=== PATIENT | female | born 1985 | race Asian ===

== ENCOUNTER 2018-01-31 | Emergency (ER) | payer OTHER, SELFPAY ==
--- OUTSIDE RECORDS SUMMARY | 2018-01-31 21:24 | XMS REPORT | Clinical Summary ---
:1985 Author Organization [facility] Address [address] [place] [id number] Care Team Providers Name Role Phone Asked, No Pcp Primary Care Provider Unavailable Allergies Active Allergy Reactions Severity Noted Date Comments Iodine Anaphylaxis High 05/06/2017 Current Medications Prescription Sig. Disp. Refills Start Date End Date Status ondansetron (ZOFRAN) 4 Take 1 tablet 12 tablet 0 05/06/2017 06/05/2017 MG tablet (4 mg total) by mouth every 6 (six) hours for 30 days. Active Problems Not on file Encounters Date Type Specialty Care Team Description 05/06/2017 Emergency Emergency Medicine Alexandria Retana, without MD Shahram loss of consciousness, initial encounter (Primary Dx) 03/12/2017 Hospital Encounter Emergency Medicine Physician, Emergency, Gael Tenorio MD after 01/30/2017 Social History Tobacco Use Types Packs/Day Years Used Date Current Every Day Smoker Tobacco Cessation: Ready to Quit: No; Counseling Given: No Alcohol Use Drinks/Week oz/Week Comments No Sex Assigned at Date Recorded Not on file Last Filed Vital Signs Vital Sign Reading Time Taken Blood Pressure 121/77 05/06/2017 10:00 AM CDT Pulse 87 05/06/2017 10:00 AM CDT Temperature 37 C (98.6 F) 05/06/2017 10:00 AM CDT Respiratory Rate 17 05/06/2017 10:00 AM CDT Oxygen Saturation 100% 05/06/2017 10:00 AM CDT Inhaled Oxygen Concentration - - Weight 79.4 kg (175 lb) 05/06/2017 7:48 AM CDT Height 162.6 cm (5' 4") 05/06/2017 7:48 AM CDT Body Mass Index 30.04 05/06/2017 7:48 AM CDT Plan of Treatment Health Maintenance Due Date Last Done Comments PAP SMEAR 2005 INFLUENZA VACCINE 06/11/2017 Results ECG ED Preliminary Interpretation - NOT AN ORDER (05/06/2017 8:49 AM) Narrative Alexandria Retana MD 05/06/20178:49 AM ECG ED Preliminary Interpretation - Not an Order Performed by: ALEXANDRIA RETANA Authorized by: ALEXANDRIA RETANA ECG reviewed by ED Physician in the absence of a bait maker: no Previous ECG: Previous ECG:Compared to current Interpretation: Interpretation: normal Rate: ECG rate:57 ECG rate assessment: normal Rhythm: Rhythm: sinus rhythm and sinus bradycardia Ectopy: Ectopy: none QRS: QRS axis:Normal Conduction: Conduction: normal ST segments: ST segments:Normal T waves: T waves: normal ECG 12 lead (05/06/2017 8:38 AM) Component Value Ref Range Ventricular rate 57 Atrial rate 57 WV interval 170 QRSD interval 80 QT interval 432 QTC interval 420 P axis 1 57 QRS axis 1 48 T wave axis 40 EKG impression Sinus bradycardia-Otherwise normal ECG-No previous ECGs available- Specimen Performing Laboratory [facility] [address] [place] [address] Estimated GFR (05/06/2017 8:23 AM)Only the most recent of2 resultswithin the time period is included. Component Value Ref Range GFR Non Af Amer 83 mL/min/1.73 m2 GFR Af Amer >90 mL/min/1.73 m2 Comment: Chronic kidney disease: <60 mL/min/1.73m2 Kidney failure: <15 mL/min/1.73m2 The estimated GFR is calculated from the IDMS-traceable Modification of Diet in Renal Disease Equation. The accuracy of the calculation is poor when the creatinine is normal. Calculated values >90 mL/min/1.73m2 are not reported. This equation has not been validated in children (<18 years), women, the elderly (>70 years), or ethnic groups other than Caucasians and Americans. Specimen Performing Laboratory Plasma specimen [facility] DEPARTMENT OF PATHOLOGY AND GENOMIC MEDICINE [address] [place] [address] Troponin (05/06/2017 8:23 AM) Component Value Ref Range Troponin <0.01 0.00 - 0.60 ng/mL Comment: 0.11 - 1.49 ng/mlMay indicate increased risk of acute coronary syndrome. >=1.5 ng/mlConsistent with acute myocardial infarction. The diagnostic value of a single normal or non-diagnostic result is questionable.Serial samples at 2-6 hour intervals are required to rule out acute myocardial injury. Specimen Performing Laboratory Plasma specimen [facility] DEPARTMENT OF PATHOLOGY AND GENOMIC MEDICINE [address] [place] [address] CBC with platelet and differential (05/06/2017 8:23 AM)Only the most recent of2 resultswithin the time period is included. Component Value Ref Range WBC 5.9 4.2 - 11.0 k/uL RBC 4.43 4.04 - 5.86 m/uL HGB 13.5 11.5 - 15.3 g/dL HCT 39.0 34.0 - 45.0 % MCV 88.0 80.0 - 98.0 fL MCH 30.5 27.0 - 34.0 pg MCHC 34.6 31.5 - 36.5 g/dL RDW - SD 39.1 37.0 - 51.0 fL MPV 10.6 (H) 7.4 - 10.4 fL Platelet count 228 150 - 400 k/uL Nucleated RBC 0.00 /100 WBC Neutrophils 60.1 36.0 - 66.0 % Lymphocytes 29.7 24.0 - 44.0 % Monocytes 6.4 (H) 0.0 - 6.0 % Eosinophils 3.2 0.0 - 6.0 % Basophils 0.3 0.0 - 1.2 % Immature granulocytes 0.3 0.0 - 1.0 % Specimen Performing Laboratory Blood [facility] DEPARTMENT OF PATHOLOGY AND GENOMIC MEDICINE [address] [place] [address] hCG qualitative, serum screen (05/06/2017 8:23 AM) Component Value Ref Range hCG qualitative, serum Negative Comment: The manufacturers stated sensitivity of HcG test for serum is >/=10 mIU/ml and urine is >/=20mIU/ml. Specimen Performing Laboratory Blood [facility] DEPARTMENT OF PATHOLOGY AND GENOMIC MEDICINE [address] [place] [address] Comprehensive metabolic panel (05/06/2017 8:23 AM)Only the most recent of2 resultswithin the time period is included. Component Value Ref Range Sodium 140 135 - 150 mEq/L Potassium 3.8 3.5 - 5.0 mEq/L Chloride 106 100 - 109 mEq/L CO2 26 24 - 32 mmol/L Anion gap 8 7 - 15 mEq/L Comment: Starting from February , anion gap calculation no longer incorporates potassium. Please note the change. BUN 8 7 - 18 mg/dL Creatinine 0.8 0.8 - 1.5 mg/dL Glucose 91 65 - 100 mg/dL Calcium 8.9 8.6 - 10.7 mg/dL Protein 7.9 6.3 - 8.2 g/dL Albumin 3.9 3.2 - 5.0 g/dL A/G ratio 1.0 0.7 - 3.8 Alkaline phosphatase 72 30 - 120 U/L AST 18 15 - 37 U/L ALT 22 (L) 30 - 65 U/L Total bilirubin 0.8 0.2 - 1.2 mg/dL Specimen Performing Laboratory Plasma specimen [facility] DEPARTMENT OF PATHOLOGY AND GENOMIC MEDICINE [address] [place] [address]. [place] [address] CT Head Wo Contrast (05/06/2017 8:17 AM) Specimen Performing Laboratory [facility] [address] [place] [address] Narrative Procedure:CT HEAD WO CONTRAST REFERRING PHYSICIAN:ALEXANDRIA RETANA HISTORY:head trauma COMPARISON: None TECHNIQUE: Axial images were obtained of the head without intravenous contrast. All CT scan performed using radiation dose reduction techniques. Technical factors are evaluated and adjusted to ensure appropriate moderation of exposure. Automated dose management technology is applied to adjust the radiation dose to minimize expose whileachieving a diagnostic quality image. FINDINGS: Aquino-white matter differentiation is maintained. The ventricular system is symmetric and midline. Nointra-axial or extra-axial lesion is seen. The visualized portion of the orbits and mastoid air cells are unremarkable. Probable 2.5 cm right maxillary mucous retention cyst is noted. The calvarium is intact. IMPRESSION: Unremarkable CT head exam with no CT evidence of acute intracranial abnormality or hemorrhage. [id number] Procedure Note Interface, Radiology Results Incoming - 05/06/2017 8:24 AM CDT Procedure:CT HEAD WO CONTRAST REFERRING PHYSICIAN:ALEXANDRIA RETANA HISTORY: head trauma COMPARISON: None TECHNIQUE: Axial images were obtained of the head without intravenous contrast. All CT scan performed using radiation dose reduction techniques. Technical factors are evaluated and adjusted to ensure appropriate moderation of exposure. Automated dose management technology is applied to adjust the radiation dose to minimize expose while achieving a diagnostic quality image. FINDINGS: Aquino-white matter differentiation is maintained. The ventricular system is symmetric and midline. No intra-axial or extra-axial lesion is seen. The visualized portion of the orbits and mastoid air cells are unremarkable. Probable 2.5 cm right maxillary mucous retention cyst is noted. The calvarium is intact. IMPRESSION: Unremarkable CT head exam with no CT evidence of acute intracranial abnormality or hemorrhage. [id number] Urine culture screen (03/12/2017 9:03 PM) Component Value Ref Range Color, UA Yellow Appearance, UA Clear Specific gravity, UA 1.011 1.001 - 1.035 pH, UA 6.0 5.0 - 8.5 Protein, UA Negative Negative Glucose, UA Negative Negative Ketones, UA Negative Negative Bilirubin, UA Negative Negative Blood, UA Negative Negative Nitrite, UA Negative Negative Urobilinogen, UA Negative <2.0 Leukocyte esterase, UA Negative Negative Epithelial cells, UA Few /HPF WBC, UA <1 0 - 5 /HPF RBC, UA 3 0 - 5 /HPF Bacteria, UA Trace None seen Yeast, UA None seen Yeast with pseudohyphae, UA None seen Urine culture isolate Mixed Gram positive larry 10-2 cfu/ml This is a corrected report. Previously reported as Gram positive larry. Urine culture isolate Gram negative rods <10-1 cfu/ml Specimen Performing Laboratory Urine [facility] DEPARTMENT OF PATHOLOGY AND GENOMIC MEDICINE [address] [place] [address] Narrative Specimen Site is : Clean catch Specimen Source is : Urine Gram stain (03/12/2017 9:03 PM) Component Value Ref Range Gram stain result Rare WBC's Few Gram positive rods Specimen Performing Laboratory Urine [facility] DEPARTMENT OF PATHOLOGY AND GENOMIC MEDICINE [address] [place] [address] Narrative Specimen Site is : Clean catch Specimen Source is : Urine XR Chest 2 Vw (03/12/2017 7:37 PM) [facility]imen [facility] [address] [place] [address] Narrative EXAMINATION:CHEST 2 VIEW PA AP LATERAL CLINICAL HISTORY:Fever/Sepsis COMPARISON:None IMPRESSION: 1.Heart size is within normal limits. Vessels are not congested. 2.No infiltrates are seen. 3.There are no pleural effusions. 4.There is some thoracolumbar scoliosis. [facility]-[id number] Procedure Note Hm Interface, Radiology Conversion - 03/12/2017 7:43 PM CDT EXAMINATION: CHEST 2 VIEW PA AP LATERAL CLINICAL HISTORY: Fever/Sepsis COMPARISON: None IMPRESSION: 1.Heart size is within normal limits. Vessels are not congested. 2.No infiltrates are seen. 3.There are no pleural effusions. 4.There is some thoracolumbar scoliosis. [facility]-[id number] Lactic acid level (03/12/2017 7:21 PM) Component Value Ref Range Lactic acid 1.4 0.5 - 2.2 mmol/L Specimen Performing Laboratory [facility] DEPARTMENT OF PATHOLOGY AND GENOMIC MEDICINE [address] [place] [address] Group A strep, rapid antigen (03/12/2017 7:07 PM) Component Value Ref Range Group A strep, rapid antigen result Negative for Group A Streptococcus antigen. Specimen Performing Laboratory Throat [facility] DEPARTMENT OF PATHOLOGY AND GENOMIC MEDICINE [address] [place] [address] Narrative Specimen Site is : Not otherwise specified Specimen Source is : Throat Strep screen culture (03/12/2017 6:03 PM) Component Value Ref Range Strep screen culture isolate No beta hemolytic Streptococci isolated Specimen Performing Laboratory Throat [facility] DEPARTMENT OF PATHOLOGY AND GENOMIC MEDICINE [address] [place] [address] Narrative Specimen Site is : Not otherwise specified Specimen Source is : Throat after 01/30/2017 Insurance Payer Benefit Plan / Group Subscriber ID Type Phone Address [facility] CHOICE/CHOICE + xxxxxxxxx HMO/PPO [phone] [place] [address]
--- NOTE | 2018-01-31 22:37 | EDPHYS ---
Physician Documentation [facility] Name: Apryl Chung Age: 32 yrs Sex: Female : 1985 Arrival Date: 01/31/2018 Time: 21:26 Bed 26 Private MD: ED Physician Ismael Wong HPI: 02/01 15:27 This 32 yrs old Female presents to ER via Ambulatory with complaints of Eye wa Problem. 15:27 The patient is experiencing itching, to both eyes. Onset: The symptoms/episode wa began/occurred 3 day(s) ago. Duration: the symptoms are continuous. Aggravated by nothing. Alleviated by nothing. Associated signs and symptoms: Pertinent positives: mild congestion, Pertinent negatives: dizziness, ear ache, fever, headache. Patient does not utilize any form of vision correction. Severity of symptoms: At their worst the symptoms were mild in the emergency department the symptoms are unchanged. The patient has not experienced similar symptoms in the past. The patient has not recently seen a physician. 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 - Social history:: Smoking status: Patient uses tobacco products, denies chronic smoking, but will smoke occasionally. - Family history:: not pertinent. - Hospitalizations: : No recent hospitalization is reported. ROS: 02/01 15:30 Constitutional: Negative for fever, chills, and weight loss, ENT: Negative for injury, wa pain, and discharge, Neck: Negative for injury, pain, and swelling, Cardiovascular: Negative for chest pain, palpitations, and edema, Respiratory: Negative for shortness of breath, cough, wheezing, and pleuritic chest pain, Abdomen/GI: Negative for abdominal pain, nausea, vomiting, diarrhea, and constipation, Back: Negative for injury and pain, : Negative for injury, bleeding, discharge, and swelling, MS/Extremity: Negative for injury and deformity, Skin: Negative for injury, rash, and discoloration, Neuro: Negative for headache, weakness, numbness, tingling, and seizure, Psych: Negative for depression, anxiety, suicide ideation, homicidal ideation, and hallucinations. Eyes: Positive for itching, Negative for blurry vision, discharge, foreign body sensation, pain, photophobia, redness, swelling, tearing, vision loss. All other systems are negative. Exam: 15:30 Visual Acuity: Visual acuity is within normal limits. ok 15:30 Head/Face: Normocephalic, atraumatic. ENT: Nares patent. No nasal discharge, no septal abnormalities noted. Tympanic membranes are normal and external auditory canals are clear. Oropharynx with no redness, swelling, or masses, exudates, or evidence of obstruction, uvula midline. Mucous membranes moist. Neck: Trachea midline, no thyromegaly or masses palpated, and no cervical lymphadenopathy. Supple, full range of motion without nuchal rigidity, or vertebral point tenderness. No Meningismus. Cardiovascular: Regular rate and rhythm with a normal S1 and S2. No gallops, murmurs, or rubs. Normal PMI, no JVD. No pulse deficits. Respiratory: Lungs have equal breath sounds bilaterally, clear to auscultation and percussion. No rales, rhonchi or wheezes noted. No increased work of breathing, no retractions or nasal flaring. Abdomen/GI: Soft, non-tender, with normal bowel sounds. No distension or tympany. No guarding or rebound. No evidence of tenderness throughout. Back: No spinal tenderness. No costovertebral tenderness. Full range of motion. Skin: Warm, dry with normal turgor. Normal color with no rashes, no lesions, and no evidence of cellulitis. MS/ Extremity: Pulses equal, no cyanosis. Neurovascular intact. Full, normal range of motion. Neuro: Awake and alert, GCS 15, oriented to person, place, time, and situation. Cranial nerves II-XII grossly intact. Motor strength 5/5 in all extremities. Sensory grossly intact. Cerebellar exam normal. Normal gait. Psych: Awake, alert, with orientation to person, place and time. Behavior, mood, and affect are within normal limits. 15:30 Eyes: Periorbital structures: appear normal, Pupils: no acute changes, equal, round, and reactive to light and accomodation, Extraocular movements: no acute changes, Conjunctiva: normal, no exudate, no injection, no abnormal tearing, Corneas: are normal, Sclera: no appreciated abnormality, Anterior chamber: normal, Lids and lashes: appear normal. Vital Signs: 01/31 21:36 BP 143 / 103 RA Sitting; Pulse 68; Resp 16; Temp 98.0(TE); Pulse Ox 100% on R/A; Weight lp1 77.11 kg; Height 5 ft. 4 in. (162.56 cm); Pain 5/10; 21:36 BP 155 / 109 LA Sitting; lp1 22:30 BP 144 / 95; Pulse 72; Resp 15; Pulse Ox 100% on R/A; lk1 21:36 Body Mass Index 29.18 (77.11 kg, 162.56 cm) lp1 MDM: 22:04 Patient medically screened. ok 02/01 15:31 Differential diagnosis: nml exam. consider reaction to pollen? will suggest trial of wa zyrtec and pataday. f/u with ophtho prn. Data reviewed: vital signs, nurses notes. Administered Medications: No medications were administered Disposition: 01/31/18 22:37 Discharged to Home. Impression: Itchy eyes, Acute eye irritation. - Condition is Stable. - Prescriptions for Zyrtec 10 mg Oral Tablet - take 1 tablet by ORAL route once daily As needed; 20 tablet. Pataday 0.2 % Ophthalmic drops - instill 1 drop by OPHTHALMIC route every 12 hours; 1 box. - Medication Reconciliation Form, Thank You Letter, Antibiotic Education, Prescription Opioid Use form. - Follow up: Socorro Lauren MD; When: 1 - 2 days; Reason: Recheck today's complaints. - Problem is new. - Symptoms are unchanged. - Notes: use medicines as prescribed. follow up with the eye doctor as discussed Signatures: Juanita Romano, RN RN lp1 Sandra Dhillon RN RN lk1 Ismael Wong MD MD wa
--- NOTE | 2018-01-31 22:37 | ER ---
Nurse's Notes [facility] Name: Apryl Chung Age: 32 yrs Sex: Female : 1985 Arrival Date: 01/31/2018 Time: 21:26 Bed 26 Private MD: Diagnosis: Itchy eyes;Acute eye irritation Presentation: 01/31 21:32 Presenting complaint: Patient states: Feeling eyes are irritated since yesterday, lp1 States small time frame with blurry vision to left eye that has resolved now; States switching to Pescatarian diet and has eaten a lot of seafood, concerned of allergic reaction; States eyes feeling strained, "like my eyes are being pulled". Transition of care: patient was not received from another setting of care. Onset of symptoms was January 31, 2018. Care prior to arrival: None. 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 - Social history:: Smoking status: Patient uses tobacco products, denies chronic smoking, but will smoke occasionally. - Family history:: not pertinent. - Hospitalizations: : No recent hospitalization is reported. Screenin:36 Abuse screen: Denies threats or abuse. Denies injuries from another. Nutritional lp1 screening: No deficits noted. Tuberculosis screening: No symptoms or risk factors identified. Fall Risk None identified. Assessment: 22:15 General: Appears in no apparent distress. Behavior is appropriate for age, agitated. lk1 Pain: Complains of pain in right eye and left eye. Neuro: Level of Consciousness is awake, alert, obeys commands, Oriented to person, place, time, situation, Pupils are PERRLA. Cardiovascular: Capillary refill is brisk Patient's skin is warm and dry. Respiratory: Airway is patent Respiratory effort is even, unlabored, Respiratory pattern is regular, symmetrical. EENT: Eyes clear . Sclera/Cornea. Vital Signs: 21:36 BP 143 / 103 RA Sitting; Pulse 68; Resp 16; Temp 98.0(TE); Pulse Ox 100% on R/A; Weight lp1 77.11 kg; Height 5 ft. 4 in. (162.56 cm); Pain 5/10; 21:36 BP 155 / 109 LA Sitting; lp1 22:30 BP 144 / 95; Pulse 72; Resp 15; Pulse Ox 100% on R/A; lk1 21:36 Body Mass Index 29.18 (77.11 kg, 162.56 cm) 1 ED Course: 21:26 Patient arrived in ED. al2 21:34 Triage completed. lp1 21:34 Arm band placed on left wrist. lp1 22:04 Ismael Wong MD is Attending Physician. al 22:19 Sandra Dhillon RN is Primary Nurse. lk1 22:36 Socorro Lauren MD is Referral Physician. al 22:53 Patient has correct armband on for positive identification. Bed in low position. Call lk1 light in reach. Adult w/ patient. 22:53 No provider procedures requiring assistance completed. Patient did not have IV access lk1 during this emergency room visit. Administered Medications: No medications were administered Outcome: 22:37 Discharge ordered by . al 22:53 Discharged to home ambulatory. lk1 22:53 Condition: good 22:53 Discharge instructions given to patient, significant other, Instructed on discharge instructions, follow up and referral plans. medication usage, safety practices, Demonstrated understanding of instructions, follow-up care, medications, Prescriptions given X 2. 22:54 Patient left the ED. lk1 Signatures: Juanita Romano RN RN 1 Sandra Dhillon, [facility] Ismael Wong MD MD wa Love, Angelica al
== END 2018-01-31 22:54 | disposition home or self-care (01) ==
CPT/HCPCS: 99282

== ENCOUNTER 2019-10-07 19:35 | Emergency (ER) | payer OTHER, SELFPAY ==
--- OUTSIDE RECORDS SUMMARY | 2019-10-07 19:37 | XMS REPORT ---
:1985 [facility] Address [address] [place] [address] Care Team Providers Name Role Phone Unavailable Unavailable Unavailable Payers Payer Name Policy Type Policy Number Effective Date Expiration Date Problems This patient has no known problems. Allergies, Adverse Reactions, Alerts Allergy Allergy Status Severity Reaction(s) Onset Inactive Treating Comments Name Type Date Date Clinician Iodinated DA Active MO 2019-03 Contrast- -11 Oral and IV 00:00:0 Dye 0 Iodinated DA Active MO 2019-03 Contrast- -10 Oral and IV 00:00:0 Dye 0 pineapple DA Active MO 2019-03 00:00:0 0 Iodinated DA Active MO 2019-03 Contrast- -09 Oral and IV 00:00:0 Dye 0 Iodinated DA Active MO 2017-04 Contrast- -05 Oral and IV 00:00:0 Dye 0 pineapple DA Active MO 2017-04 00:00:0 0 Medications This patient has no known medications. Results Test Description Test Time Test Comments Text Results Atomic Results Result Comments - CT ANGIO HEAD 2019-03-21 09:40:00 Name: KERRY LU [facility] : 1985 Age/S: 33 / F [address] Unit #: [id number] Loc: [place] [address] Phys: Delano Vargas MD Acct: [id number] Dis Date: Status: ADM IN PHONE #: [phone] Exam Date: 03/21/2019919 FAX #: Reason: stroke EXAMS: CPT: [id number] CT ANGIO HEAD [address] Location: T 18 CTA of the brain 03/21/19 TECHNIQUE: CTA examination of the zhwuxy-ko-Cqjsdl was performed on a helical scanner with patient given 100 mL of Isovue 300. Vascular protocol performed. Ultrathin slice axial images acquired from skull base through vertex of brain utilizing contiguous 0.6mm slice thickness with coronal and sagittal reformatted images acquired on the PAC workstation. Post contrast only images acquired. 3D reformatted images also acquired of the intracranial vessels using VITREA software by the interpreting radiologist . The examination was performed on an updated helical CT scanner utilizing low-dose radiation technique. Automatic exposure technique was utilized to reduce radiation dose. CLINICAL HISTORY: Ischemic stroke Comparison exam: MRI imaging of the brain of 03/19/19 and CTA assessment of the neck 03/21/19 FINDINGS: Do not see any findings suggestive of an aneurysm or vascular malformation. No discrete area of stenosis or pruning of the vessels is seen. No large branch occlusion is seen. No findings suggestive of vertebro basilar insufficiency is seen. No space occupying process is seen. No midline shift or abnormal enhancement is seen. No intracranial hemorrhage is seen with assessment for subarachnoid hemorrhage limited since post contrast images only acquired. IMPRESSION: Normal CTA examination xskayp-pr-Fxlwmt at 0940 Reported and signed by: Maryse Mclaughlin M.D. PAGE 1 Signed Report (CONTINUED) Name: KERRY LU [facility] : 1985 Age/S: 33 / F [address] Unit #: [id number] Loc: [place] [address] Phys: Delano Vargas MD Acct: [id number] Dis Date: Status: ADM IN PHONE #: [phone] Exam Date: 03/21/2019919 FAX #: Reason: stroke EXAMS: CPT: [id number] CT ANGIO HEAD [address] <Continued> CC: Delano Vargas MD; Bhavin Rivera MD Technologist:RT Elieser(R)(MR); Emmetti CTDI: DLP: Trnscb Date/Time: 03/21/2019 (939) [email or web address] Orig Print D/T: S: 03/21/2019 (0943) PAGE 2 Signed Report - CT ANGIO NECK 2019-03-21 09:37:00 Name: KERRY LU [place] : 1985 Age/S: 33 / F [address] Unit #: [id number] Loc: [place] [address] Phys: Delano Vargas MD Acct: [id number] Dis Date: Status: ADM IN PHONE #: [phone] Exam Date: 03/21/2019919 FAX #: Reason: stroke EXAMS: CPT: [id number] CT ANGIO NECK [address] Location: T 18 CTA neck, 03/21/19 TECHNIQUE: CTA examination of the neck with contrast using vascular protocol performed on a helical scanner. Scanning conducted using ultrathin contiguous 0.6mm axial slice technique from aortic arch through skull base. Patient given 100 mL of Isovue 360 for contrast. High resolution sagittal and coronal reformatted images acquired on the PAC workstation. 3D volume rendering images also acquired by interpreting radiologist using VITREA software provided on the PAC system . The examination was conducted on an updated helical CT scanner utilizing low-dose radiation technique. Automatic exposure technique was utilized to reduce radiation dose CLINICAL HISTORY: Stroke assessment, ischemic stroke Comparison exam: MRI imaging of the brain of 03/19/19 and MRA assessment of the neck of 03/19/19 and to the carotid Doppler findings of 03/19/19 FINDINGS: No findings of concern for vasculitis. No findings of concern for vascular dissection. No measurable carotid stenosis. No significant carotid stenosis. MRI findings discussing possible stenosis at the origin of the right ICA felt to be artifactual. Likewise there is normal enhancement seen in the vertebral arteries. Normal branching pattern of the vessels arising from the aortic arch. No significant stenosis of the prebulbar portion of either carotid artery is seen. The brachiocephalic artery and subclavian arteries exhibit normal enhancement. No significant atherosclerotic plaque formation is seen. IMPRESSION: Unremarkable CTA examination of the neck without measurable carotid stenosis. No findings of concern for dissection PAGE 1 Signed Report (CONTINUED) [facility] [place] [facility] 1985 Age/S: 33 / F [address] Unit #: [id number] Loc: [place] [address] Phys: Delano Vargas MD Acct: [id number] Dis Date: Status: ADM IN PHONE #: [phone] Exam Date: 03/21/2019919 FAX #: Reason: stroke EXAMS: CPT: [id number] CT ANGIO NECK [address]9768 <Continued> at 0937 Reported and signed by: Maryse Mclaughlin M.D. CC: Delano Vargas MD; Bhavin Rivera MD Technologist:RT Elieser(R)(MR); Micah CTDI: DLP: Trnscb Date/Time: 03/21/2019 (936) [email or web address] Orig Print D/T: S: 03/21/2019 (78) PAGE 2 Signed Report BASIC METABOLIC PANEL 2019-03-21 08:14:00 Test Item Value Reference Range Comments SODIUM (test code=NA) 140 mmol/L 134-147 POTASSIUM (test code=K) 4.2 mmol/L 3.4-5.0 CHLORIDE (test code=CL) 108 mmol/L 100-108 CARBON DIOXIDE (test code=CO2) 27 mmol/L 21-32 ANION GAP (test code=GAP) 5.0 GAP calc 4.0-15.0 GLUCOSE (test code=GLU) 121 MG/DL 70-110 BLOOD UREA NITROGEN (test code=BUN) 8 MG/DL 7-18 GLOMERULAR FILTRATION RATE (test code=GFR) >=60 max estimate estGFR >60 CREATININE (test code=CREAT) 0.8 MG/DL 0.6-1.0 CALCIUM (test code=CA) 8.8 MG/DL 8.5-10.1 GLUCOSE BEDSIDE [id number] 08:12:00 Test Item Value Reference Range Comments GLUCOSE BEDSIDE TESTING (test code=GLUBED) 121 mg/dL 70-110 CBC W/AUTO [id number] 08:11:00 Test Item Value Reference Range Comments WHITE BLOOD CELL (test code=WBC) 15.6 K/mm3 3.5-11.0 RED BLOOD CELL (test code=RBC) 4.23 M/mm3 4.70-6.10 HEMOGLOBIN (test code=HGB) 12.8 G/DL 10.4-14.9 HEMATOCRIT (test code=HCT) 39.0 % 31.5-44.1 MEAN CELL VOLUME (test code=MCV) 92.2 Fl 84.5-98.6 MEAN CELL HGB (test code=MCH) 30.3 pg 27.0-34.2 MEAN CELL HGB CONCETRATION (test code=MCHC) 32.8 G/DL 31.5-34.0 RED CELL DISTRIBUTION WIDTH (test code=RDW) 11.9 SD 11.5-14.5 PLATELET COUNT (test code=PLT) 240.0 K/mm3 150-450 MEAN PLATELET VOLUME (test code=MPV) 11.00 fL 7.0-10.5 NEUTROPHIL % (test code=NT%) 91.3 % 40-76 LYMPHOCYTE % (test code=LY%) 7.2 % 20.5-51.1 MONOCYTE % (test code=MO%) 1.5 % 1.7-9.3 EOSINOPHIL % (test code=EO%) 0.0 % 0.0-6.0 BASOPHIL % (test code=BA%) 0.0 % 0.0-2.0 NEUTROPHIL # (test code=NT#) 14.24 K/mm3 1.8-7.6 LYMPHOCYTE # (test code=LY#) 1.1 K/mm3 0.6-3.2 MONOCYTE # (test code=MO#) 0.2 K/mm3 0.3-1.1 EOSINOPHIL # (test code=EO#) 0.0 K/mm3 0.0-0.4 BASOPHIL # (test code=BA#) 0.0 K/mm3 0.0-0.1 MANUAL DIFF REQUIRED (test code=MDIFF) NO DIFF/SCN CRITERIA GLUCOSE BEDSIDE [id number] 00:54:00 Test Item Value Reference Range Comments GLUCOSE BEDSIDE TESTING (test code=GLUBED) 119 mg/dL 70-110 SED [id number] 12:08:00 Test Item Value Reference Range Comments SED RATE (test code=SEDW) 11 mm/hr 0-20 BASIC METABOLIC [id number] 11:19:00 Test Item Value Reference Range Comments SODIUM (test code=NA) 141 mmol/L 134-147 POTASSIUM (test code=K) 4.6 mmol/L 3.4-5.0 CHLORIDE (test code=CL) 108 mmol/L 100-108 CARBON DIOXIDE (test code=CO2) 26 mmol/L 21-32 ANION GAP (test code=GAP) 7.0 GAP calc 4.0-15.0 GLUCOSE (test code=GLU) 94 MG/DL 70-110 BLOOD UREA NITROGEN (test code=BUN) 12 MG/DL 7-18 GLOMERULAR FILTRATION RATE (test >=60 max estimate estGFR >60 code=GFR) CREATININE (test code=CREAT) 0.9 MG/DL 0.6-1.0 CALCIUM (test code=CA) 8.7 MG/DL 8.5-10.1 CBC W/AUTO [id number] 11:03:00 Test Item Value Reference Range Comments WHITE BLOOD CELL (test code=WBC) 6.8 K/mm3 3.5-11.0 RED BLOOD CELL (test code=RBC) 4.10 M/mm3 4.70-6.10 HEMOGLOBIN (test code=HGB) 12.5 G/DL 10.4-14.9 HEMATOCRIT (test code=HCT) 38.3 % 31.5-44.1 MEAN CELL VOLUME (test code=MCV) 93.4 Fl 84.5-98.6 MEAN CELL HGB (test code=MCH) 30.5 pg 27.0-34.2 MEAN CELL HGB CONCETRATION (test code=MCHC) 32.6 G/DL 31.5-34.0 RED CELL DISTRIBUTION WIDTH (test code=RDW) 12.0 SD 11.5-14.5 PLATELET COUNT (test code=PLT) 212.0 K/mm3 150-450 MEAN PLATELET VOLUME (test code=MPV) 10.60 fL 7.0-10.5 NEUTROPHIL % (test code=NT%) 65.5 % 40-76 LYMPHOCYTE % (test code=LY%) 24.4 % 20.5-51.1 MONOCYTE % (test code=MO%) 6.2 % 1.7-9.3 EOSINOPHIL % (test code=EO%) 3.8 % 0.0-6.0 BASOPHIL % (test code=BA%) 0.1 % 0.0-2.0 NEUTROPHIL # (test code=NT#) 4.43 K/mm3 1.8-7.6 LYMPHOCYTE # (test code=LY#) 1.7 K/mm3 0.6-3.2 MONOCYTE # (test code=MO#) 0.4 K/mm3 0.3-1.1 EOSINOPHIL # (test code=EO#) 0.3 K/mm3 0.0-0.4 BASOPHIL # (test code=BA#) 0.0 K/mm3 0.0-0.1 MANUAL DIFF REQUIRED (test code=MDIFF) NO DIFF/SCN CRITERIA GLUCOSE BEDSIDE [id number] 20:04:00 Test Item Value Reference Range Comments GLUCOSE BEDSIDE TESTING (test code=GLUBED) 98 mg/dL 70-110 GLUCOSE BEDSIDE [id number] 16:16:00 Test Item Value Reference Range Comments GLUCOSE BEDSIDE TESTING (test code=GLUBED) 92 mg/dL 70-110 - MRA NECK W/O [id number] 13:33:00 FAX: Bhavin Rivera MD Camps: PM St: ADM FAX: Radha Mann MD ----- Name: KERRY LU [facility] : 1985 Age/S: 33/F [address] Unit #: [id number] Loc: [address] [place] [address] Phys: Radha Mann MD Acct: [id number] Dis Date: Status: ADM IN PHONE #: [phone] Exam Date: 03/19/2019 1226 FAX #: Reason: neck manipulation EXAMS: CPT: [id number] MRA NECK W/O CONT 88001 Location code: B2 MRA Carotid Bifurcations Indication: neck manipulation. Comparison: None Technical factors: 3 dimensional MR angiography images of the carotid bifurcations were obtained utilizing standard techniques. Findings: Moderate stenosis is suggested at the origin of the right external carotid artery and right internal carotid artery. The common carotid artery is patent, as are the distal internal and external carotid arteries. Mild stenosis is suggested at the origins of the left internal and external carotid arteries. The common carotid artery is patent, as are the distal internal and external carotid arteries. The vertebral arteries are patent andcodominant. Impression: Possible moderate stenosis at the origin of the right internal and external carotid arteries and mild stenosis at the origin of the left internal and external carotid arteries versus flow related artifact. Consider carotid sonogram to confirm the degree of stenosis. at 5343 Reported and signed by: Clemente Nicole M.D. PAGE 1 Signed Report ( CONTINUED) FAX: Bhavin Rivera MD [phone] Camps: PM St: ADM FAX: Radha Mann MD Name: TATYANA LU [place] : 1985 Age/S: 33/F [address] [facility] Unit #: [id number] Loc: [address] [place] [address] Phys: Yoli Mann Acct: [id number] Dis Date: Status: ADM IN PHONE #: [phone] Exam Date: 03/19/2019 1226 FAX #: Reason: neck manipulation EXAMS: CPT: [id number] MRA NECK W/O CONT 90428 <Continued>CC: Bhavin Rivera MD; Radha Mann MD Technologist: Ayleen Barrios RT(R)(MR); ... Transcribed Date/Time/By: 03/19/2019 (3651) :[email or web address] Orig Print D/T: S: 2018 (6636) PAGE 2 Signed Report - MRI C-SPINE W/O [id number] 13:26:00 FAX: Bhavin Rivera MD [phone] Camps: PM St: ADM FAX: Radha Mann MD -- Name: KERRY LU [facility] : 1985 Age/S: 33/F [address] Unit #: [id number] Loc: [address] [place] [address] Phys: Radha Mann MD Acct: [id number] Dis Date: Status: ADM IN PHONE #: [phone] Exam Date: 03/19/2019 1252 FAX #: Reason: neck manipulation EXAMS: CPT: [id number] MRI C-SPINE W/O CONT 05911 Location code:B2 MRI Cervical Spine Indication: Trauma. Comparison: Neck manipulation. Technical factors: Long and short axis fat- and water-weighted sequences were obtained. Findings: Straightening of the cervical lordosis. Vertebral bodies are of normal height and signal intensity. Mild signal loss of the intervertebral discs without substantive loss of height. The craniocervical junction, atlantodental interval, visualized posterior fossa and position of the cerebellar tonsils appearnormal. Pre-and paraspinal soft tissues are normal in appearance. Mucosal thickening in the paranasal sinuses. The spinal cord is of normal caliber and signal. C2 -- 3: unremarkable. C3 -- 4: Disc bulge of 1 to 1.5 mm. C4 -- 5: Disc bulge of 1 to 1.5 mm. C5- - 6: Disc bulge of 1 to 1.5 mm.C6 -- 7: unremarkable. C7 -- T1: unremarkable. Impression: 1. Straightening of the cervical lordosis may be related to muscular spasm. Correlate clinically. PAGE 1 Signed Report (CONTINUED) FAX: hBavin Rivera MD [phone] Camps: PM St: ADM FAX: Radha Mann MD Name: KERRY LU [place] : 1984 Age/S: 33/F [address] [address] Unit #: [id number] Loc: [place], [place] Phys: Radha Mann MD Acct:[id number] Dis Date: Status: ADM IN PHONE #: [phone] Exam Date: 03/19/2019 1252 FAX #: Reason: neckmanipulation EXAMS : CPT: [id number] MRI C- SPINE W/O CONT 09308 <Continued> 2. Mild disc bulges 1 to 1.5 mm at C3-4, C4-5 and C5-6. 3. Chronic sinusitis is incidentally noted. A 2 cm retention cyst is present in the left maxillary antrum. Electronically Signed by Hamilton Nicole on 2018 at 7733 Reported and signed by: Clemente Hammond M.D. CC: Bhvain Rivera MD; Radha Mann MD Technologist: RT Wilma(R)(MR); ... Transcribed Date/Time/By: 03/19/2019 (1606) :[email or web address] Orig Print D/T: S: 03/19/2019 (2552) PAGE 2 Signed Report- MRI BRAIN W/O [id number] 13:23:00 FAX: Bhavin Rivera MD [phone] Camps: PM St: ADM FAX: Ronda Veloz [phone] -- Name: KERRY LU [place] : 1985 Age/S: 33/F [address] Unit #: [id number] Loc: [place] [address] Phys: Bhavin Rivera MD Acct: [id number] Dis Date: Status: ADM IN PHONE #: [phone] Exam Date: 03/19/2019 1204 FAX #: Reason: ISCHEMIC STROKE EXAMS: CPT: [id number] MRI BRAIN W/O CONTRAST 74648 Location code:B2 MRI Brain Indication: ISCHEMIC STROKE. Comparison: None Technique: Long and short axis fat and water weighted sequences were obtained Findings: Cerebral and cortical sulci and ventricular system are normal in caliber for patient age. No evidence of intracranial mass, mass effect, or focal extra-axial fluid collection. No evidence of infarct Brain signal intensitywithin normal limits. Cerebellum and brainstem unremarkable. Otomastoid region is clear. 2 cm retention cyst in the left maxillary antrum. Craniocervical junction within normal limits. Orbits are grossly unremarkable. Vertebrobasilar and internal carotid arteries are patent. Impression: 1. Unremarkable MRI brain. PAGE 1 Signed Report (CONTINUED) FAX: Bhavin Rivera MD [phone] Camps: PM St: ADM FAX: Ronda Veloz [phone] --- Name: KERRY LU [place] : [birth year] Age/S: 33/F [address] Unit #: [id number] Loc: [place] [address] Phys: Bhavin Rivera MD Acct: [id number] Dis Date: Status: ADM IN PHONE #: [phone] Exam Date : 03/19/2019 1204 FAX #: Reason: ISCHEMIC STROKE EXAMS: CPT: [id number] MRI BRAIN W/O CONTRAST 18280 & lt;Continued> at 1323 Reported and signed by: Clemente Nicole M.D. CC: Bhavin Rivera MD; Ronda POZO Technologist: RT Wilma(R)(MR) Transcribed Date/Time/By: 03/19/2019 (0993) :Aroldo Orig Print D/T : S: 03/19/2019 (6686) PAGE 2 Signed ReportGLUCOSE BEDSIDE [id number] 13:17:00 Test Item Value Reference Range Comments GLUCOSE BEDSIDE TESTING (test code=GLUBED) 80 mg/dL 70-110 - DUP EXTRACRANIAL [id number] 10:02:00 Name: KERRY LU [place] : 1985 Age/S: 33 / F [address] Unit #: [id number] Loc: [place] [address] Phys: Bhavin Rivera MD Acct: [id number] Dis Date: Status : ADM IN PHONE #: [phone] Exam Date: 03/19/2019 0840 FAX #: Reason: ISCHEMIC STROKE EXAMS: CPT: [id number] DUP EXTRACRANIAL MICHAEL [address] Carotid Doppler ultrasound History : ISCHEMIC STROKE Comparison: None at this time Location : R16 Carotid Doppler ultrasound with color flow was performed of the common carotid and internal carotid and external carotid arteries. Measurementof the distal internal carotid artery diameter is used as the denominator for stenosis measurement, if direct measurements were obtained. The internal carotid peak systolic velocity on the right is 105 cm/s. The internal carotid peak systolic velocity on the left is 90 cm/s. The internal carotid to common carotid artery peak systolic velocity ratio on the right is1.4. The internal carotid to common carotid artery peak systolic velocity ratio on the left is 0.8. There is antegrade flow in both vertebral arteries. Impression: According to the internal carotid artery peak systolic velocities andthe internal carotid to common carotid artery peak systolic velocity ratios, there is no hemodynamically significant stenosis. at 1002 Reported and signed by: Tereso Vivar M.D. PAGE 1 Signed Report (CONTINUED) Name: KERRY LU [place] : 1985 Age/S: 33 / F [address] [address] Unit #: [id number] Loc: [place] [address] Phys: Bhavin Rivera MD Acct: [id number] Dis Date: Status: ADM IN PHONE #: [phone] Exam Date: 03/19/2019 0840 FAX #: Reason: ISCHEMIC STROKE EXAMS: CPT: [id number] DUP EXTRACRANIAL MICHAEL [address]702 <Continued> CC: Bhavin Rivera MD; Ronda POZO Technologist: Xuan Bettencourt RT(R),GRADYMS(AB) Trnnmb Date/Time: 03/19/2019 (1002) [email or web address] PAGE 2 Signed Report Name: KERRY LU [place] : 1985 Age/S: 33 / F [address] [address] Unit #: [id number] Loc: [place] [address] Phys: Bhavin Rivera MD Acct: [id number] Dis Date: Status: ADM IN PHONE #: [phone] Exam Date: 03/19/2019 0840 FAX #: Reason: ISCHEMIC STROKE EXAMS:CPT: [id number] DUP EXTRACRANIAL MICHAEL [address] <Continued> Orig Print D/T: S: 03/19/2019 (1005) Probe: PAGE 3 Signed ReportGLUCOSE BEDSIDE [id number] 07:39:00 Test Item Value Reference Range Comments GLUCOSE BEDSIDE TESTING (test code=GLUBED) 100 mg/dL 70-110 [id number] 06:55:00 Test Item Value Reference Range Comments GLYCOSYLATED HEMOGLOBIN (HA1C) (test 5.1 % A1C 4.2-6.3 code=GLYHGB) ESTIMATED AVERAGE GLUCOSE (test code=EAG) 100 MG/DLest COMPREHENSIVE METABOLIC [id number] 06:43:00 Test Item Value Reference Range Comments SODIUM (test code=NA) 142 mmol/L 134-147 POTASSIUM (test code=K) 3.4 mmol/L 3.4-5.0 CHLORIDE (test code=CL) 109 mmol/L 100-108 CARBON DIOXIDE (test code=CO2) 24 mmol/L 21-32 ANION GAP (test code=GAP) 9.0 GAP calc 4.0-15.0 GLUCOSE (test code=GLU) 97 MG/DL 70-110 BLOOD UREA NITROGEN (test code=BUN) 12 MG/DL 7-18 GLOMERULAR FILTRATION RATE (test >=60 max estimate estGFR >60 code=GFR) CREATININE (test code=CREAT) 0.8 MG/DL 0.6-1.0 TOTAL PROTEIN (test code=PROT) 6.9 G/DL 6.4-8.2 ALBUMIN (test code=ALB) 3.4 G/DL 3.4-5.0 GLOBULIN (test code=GLOB) 3.5 GM/dL ALBUMIN/GLOBULIN RATIO (test 1.0 RATIO 1.2-2.2 code=A/G) CALCIUM (test code=CA) 8.0 MG/DL 8.5-10.1 BILIRUBIN TOTAL (test code=BILT) 0.70 MG/DL 0.2-1.2 SGOT/AST (test code=AST) 15 Unit/L 15-37 SGPT/ALT (test code=ALT) 14 Unit/L 12-78 ALKALINE PHOSPHATASE TOTAL (test 62 Unit/L 45-117 code=ALKP) T4 [id number] 06:43:00 Test Item Value Reference Range Comments T4 FREE (test code=T4F) 0.95 NG/DL 0.89-1.76 THYROID STIMULATING [id number] 06:43:00 Test Item Value Reference Range Comments THYROID STIMULATING HORMONE (test code=TSH) 15.100 mcIU/ML 0.340-4.820 LIPID PROFILE (CORONARY RISK)2019-03-19 06:40:00 Test Item Value Reference Range Comments TRIGLYCERIDES (test code=TRIG) 156 MG/DL 0-150 CHOLESTEROL (test code=CHOL) 158 MG/DL 133-200 CHOLESTEROL/HDL RATIO (test code=CHOLHDL) 3.76 RATIO >0 HDL CHOLESTEROL (test code=HDL) 42 MG/DL 40-59 NON-HDL CHOLESTEROL (test code=NHDL) 116 mg/dL <130 LIPOPROTEIN LDL (test code=LDL) 94 MG/DL 0-129 LDL/HDL (test code=LDL/HDL) 2.23 Ratio 1.48-3.22 Avg Completed by Nursing: NOComment: FASTING IN [id number] 06:40:00 Test Item Value Reference Range Comments TROPONIN-I (test < 0.015 NG/ML 0.000-0.045 Negative: </=0.045 Positive: code=TROPI) >/=0.046 Correlation with serial results, other cardiac markers, and clinical findings is necessary to determine the clinical significance of this result. Quantitative results using different methodologies should not be compared to one another as numerical results may varyby method. Completed by Nursing: NOComment: FASTING IN [facility] W/AUTO [id number] 06: 32:00 Test Item Value Reference Range Comments WHITE BLOOD CELL (test code=WBC) 6.4 K/mm3 3.5-11.0 RED BLOOD CELL (test code=RBC) 3.99 M/mm3 4.70-6.10 HEMOGLOBIN (test code=HGB) 12.2 G/DL 10.4-14.9 HEMATOCRIT (test code=HCT) 35.9 % 31.5-44.1 MEAN CELL VOLUME (test code=MCV) 90.0 Fl 84.5-98.6 MEAN CELL HGB (test code=MCH) 30.6 pg 27.0-34.2 MEAN CELL HGB CONCETRATION (test code=MCHC) 34.0 G/DL 31.5-34.0 RED CELL DISTRIBUTION WIDTH (test code=RDW) 12.1 SD 11.5-14.5 PLATELET COUNT (test code=PLT) 240.0 K/mm3 150-450 MEAN PLATELET VOLUME (test code=MPV) 10.70 fL 7.0-10.5 NEUTROPHIL % (test code=NT%) 51.3 % 40-76 LYMPHOCYTE % (test code=LY%) 36.0 % 20.5-51.1 MONOCYTE % (test code=MO%) 7.7 % 1.7-9.3 EOSINOPHIL % (test code=EO%) 4.7 % 0.0-6.0 BASOPHIL % (test code=BA%) 0.3 % 0.0-2.0 NEUTROPHIL # (test code=NT#) 3.28 K/mm3 1.8-7.6 LYMPHOCYTE # (test code=LY#) 2.3 K/mm3 0.6-3.2 MONOCYTE # (test code=MO#) 0.5 K/mm3 0.3-1.1 EOSINOPHIL # (test code=EO#) 0.3 K/mm3 0.0-0.4 BASOPHIL # (test code=BA#) 0.0 K/mm3 0.0-0.1 MANUAL DIFF REQUIRED (test code=MDIFF) NO DIFF/SCN CRITERIA [id number] 03:05:00 Test Item Value Reference Range Comments TROPONIN-I (test < 0.015 NG/ML 0.000-0.045 Negative: </=0.045 Positive: code=TROPI) >/=0.046 Correlation with serial results, other cardiac markers, and clinical findings is necessary to determine the clinical significance of this result. Quantitative results using different methodologies should not be compared to one another as numerical results may varyby method. Completed by Nursing: NOURINALYSIS [id number] 02:57:00 Test Item Value Reference Range Comments UA GLUCOSE DIPSTICK (test code=DGLUU) NEGATIVE mg/dL NEG UA BILIRUBIN DIPSTICK (test code=BILU) NEGATIVE mg/dL NEG UA KETONE DIPSTICK (test code=KETU) NEGATIVE mg/dL NEG UA SPECIFIC GRAVITY (test code=SGU) 1.015 SG 1.005-1.030 UA BLOOD DIPSTICK (test code=SUNDAR) NEGATIVE mg/DL NEG UA PH DIPSTICK (test code=CHARBEL) 6.0 pH UNITS 5.0-7.0 UA PROTEIN DIPSTICK (test code=PROU) NEGATIVE mg/dL NEG UA UROBILINIOGEN DIPSTICK (test code=URO) 0.2 mg/dL <2.0 UA NITRITE DIPSTICK (test code=MANNY) NEGATIVE SCREEN NEG UA LEUKOCYTE ESTERASE DIPSTICK (test NEGATIVE Leuk/mcL NEGATIVE code=LEUU) Urine Specimen Type: Clean CatchUR HCG [id number] 02:57:00 Test Item Value Reference Range Comments UR HCG QUAL (test code=HCGQLU) NEGATIVE NEGATIVE Urine Specimen Type: Clean CatchURINALYSIS [id number] 02:49:00 Test Item Value Reference Range Comments UA GLUCOSE DIPSTICK (test code=DGLUU) NEGATIVE mg/dL NEG UA BILIRUBIN DIPSTICK (test code=BILU) NEGATIVE mg/dL NEG UA KETONE DIPSTICK (test code=KETU) NEGATIVE mg/dL NEG UA SPECIFIC GRAVITY (test code=SGU) 1.015 SG 1.005-1.030 UA BLOOD DIPSTICK (test code=SUNDAR) NEGATIVE mg/DL NEG UA PH DIPSTICK (test code=CHARBEL) 6.0 pH UNITS 5.0-7.0 UA PROTEIN DIPSTICK (test code=PROU) NEGATIVE mg/dL NEG UA UROBILINIOGEN DIPSTICK (test code=URO) 0.2 mg/dL <2.0 UA NITRITE DIPSTICK (test code=MANNY) NEGATIVE SCREEN NEG UA LEUKOCYTE ESTERASE DIPSTICK (test NEGATIVE Leuk/mcL NEGATIVE code=LEUU) Urine Specimen Type: Clean CatchUR HCG [id number] 02:49:00 Test Item Value Reference Range Comments UR HCG QUAL (test code=HCGQLU) NEGATIVE Urine Specimen Type: Clean [id number] 00:22:00 Test Item Value Reference Range Comments TROPONIN-I (test < 0.015 NG/ML 0.000-0.045 Negative: </=0.045 Positive: code=TROPI) >/=0.046 Correlation with serial results, other cardiac markers, and clinical findings is necessary to determine the clinical significance of this result. Quantitative results using different methodologies should not be compared to one another as numerical results may varyby method. Completed by Nursing: NOGLUCOSE BEDSIDE [id number] 23:30:00 Test Item Value Reference Range Comments GLUCOSE BEDSIDE TESTING (test code=GLUBED) 147 mg/dL 70-110
[2019-10-07] MEDS ORDERED: NA CHLORIDE 0.9% 1,000 ML ONE (20:13)
[2019-10-07] MEDS ORDERED: ASPIRIN 81 MG CHEWABLE TABLET ONE (20:24)
[2019-10-07] MEDS ORDERED: LORazepam 2 MG/ML VIAL ONE (20:24)
[2019-10-07 20:40] LABS: Urine Blood NEGATIVE (NEG); Urine Glucose TRACE (NEG); Urine Protein NEGATIVE (NEG)
--- NOTE | 2019-10-07 20:40 | RAD REPORT ---
EXAM DESCRIPTION: RAD - Chest Single View - 10/07/2019 8:25 pm CLINICAL HISTORY: CHEST PAIN Chest pain. COMPARISON: Chest Single View dated 11/12/2017; CHEST SINGLE VIEW dated 02/03/2015 FINDINGS: Portable technique limits examination quality. The lungs are grossly clear. The heart is normal in size. No displaced fractures. IMPRESSION: No acute intrathoracic process suspected.
[2019-10-07 20:48] LABS: Absolute Lymphocytes (CBC) 0.8 K/uL (0.7-4.9); Basophils % 0.3 % (0-1.3); Hematocrit 39.2 % (36.0-45.0); Lymphocytes % 6.6 % (15.3-44.8); MPV 9.3 fL (7.6-11.3); RBC Red Blood Cell Count 4.32 M/uL (3.86-4.86)
[2019-10-07 21:05] LABS: Blood Morphology Comment NOT SEEN (NOT SEEN); Platelet Estimate ADEQ; Urine White Blood Cell Casts OK
[2019-10-07 21:06] LABS: ALT/SGPT 24 U/L (12-78); AST/SGOT 19 U/L (15-37); Alkaline Phosphatase 86 U/L (45-117); BUN Blood Urea Nitrogen 8 mg/dL (7-18); Bicarbonate 26 mmol/L (21-32); Bilirubin Direct 0.2 mg/dL (0-0.2); Bilirubin Total 0.6 mg/dL (0.2-1.0); Glucose Level 183 mg/dL (74-106); Magnesium 2.2 mg/dL (1.8-2.4); NT PRO-BNP 18 pg/mL (<125); Potassium 4.4 mmol/L (3.5-5.1); Protein, Total 8.8 g/dL (6.4-8.2); Sodium Level 140 mmol/L (136-145); Troponin (Emerg Dept Use Only) < 0.02 ng/mL (0.0-0.045)
[2019-10-07 21:14] LABS: Protime INR 1.12
[2019-10-07] MEDS ORDERED: DIPHENHYDRAMINE 50 MG/ML VIAL ONE (21:43)
[2019-10-07] MEDS ORDERED: METHYLPREDNISOLONE 125 MG INJ ONE (21:43)
[2019-10-07] MEDS ORDERED: FAMOTIDINE 20 MG/2 ML VIAL IV ONE (22:14)
--- NOTE | 2019-10-07 23:54 | ER ---
Nurse's Notes [facility] Name: Apryl Chung Age: 34 yrs Sex: Female : 1985 Arrival Date: 10/07/2019 Time: 19:37 Bed 14 Private MD: Diagnosis: Chest pain, unspecified;Palpitations Presentation: 10/07 19:49 Presenting complaint: Patient states: "My heart is feeling like its going really hard aj1 and fast and my chest hurts" Reports that she has been feeling this way for the past 2 hours. States that she was seen at a clinic today and diagnosed with a sinus infection. Patient reports dry cough, states that she was congested but she got some shots at the clinic and she hasn't felt congested since then. Reports she was given a Rx but she didn't fill it because she felt like she already took too much medicine. Transition of care: patient was not received from another setting of care. Onset of symptoms was October 07, 2019 at 18:00. Risk Assessment: Do you want to hurt yourself or someone else? Patient reports no desire to harm self or others. Initial Sepsis Screen: Does the patient meet any 2 criteria? HR > 90 bpm. No. Patient's initial sepsis screen is negative. Does the patient have a suspected source of infection? Yes: Productive cough/pneumonia. Care prior to arrival: None. 19:49 Method Of Arrival: Ambulatory aj1 19:49 Acuity: JESSICA 3 aj1 Triage Assessment: 19:52 General: Appears in no apparent distress. uncomfortable, Behavior is calm, cooperative, aj1 appropriate for age. Pain: Complains of pain in mid-sternal area Pain does not radiate. Neuro: Level of Consciousness is awake, alert, obeys commands. Cardiovascular: Patient's skin is warm and dry. Respiratory: Airway is patent Respiratory effort is even, unlabored, Respiratory pattern is regular, symmetrical. 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 - Social history:: Smoking status: Patient/guardian denies using tobacco. - Ebola Screening: : Patient denies travel to an Ebola-affected area in the 21 days before illness onset. Screenin:27 Abuse screen: Denies threats or abuse. Denies injuries from another. Nutritional rr5 screening: No deficits noted. Tuberculosis screening: No symptoms or risk factors identified. Fall Risk IV access (20 points). Total Orozco Fall Scale indicates No Risk (0-24 pts). Assessment: 20:20 General: Appears in no apparent distress. uncomfortable, Behavior is calm, cooperative, rr5 appropriate for age, Reports weak. 20:20 Pain: Complains of pain in chest Pain does not radiate. Pain currently is 6 out of 10 rr5 on a pain scale. Quality of pain is described as aching, Pain began gradually, 2 hours ago. Is intermittent. Neuro: Level of Consciousness is awake, alert, obeys commands, Oriented to person, place, time, situation, Appropriate for age. Cardiovascular: Reports chest pain, Capillary refill < 3 seconds Patient's skin is warm and dry. Respiratory: Reports i have been diagnosed with sinusitis Airway is patent Respiratory effort is even, unlabored, Respiratory pattern is regular, symmetrical. GI: No signs and/or symptoms were reported involving the gastrointestinal system. : No signs and/or symptoms were reported regarding the genitourinary system. EENT: No signs and/or symptoms were reported regarding the EENT system. Derm: Skin is intact, Skin temperature is warm. Musculoskeletal: Circulation, motion, and sensation intact. Capillary refill < 3 seconds. 21:25 Reassessment: D-dimer 507 called by laboratory staff "chicho"ED provider aware. rr5 21:25 Reassessment: Patient appears in no apparent distress at this time. Patient and/or rr5 family updated on plan of care and expected duration. Pain level reassessed. Patient is alert, oriented x 3, equal unlabored respirations, skin warm/dry/pink. hospitalist at bedside examining the patient. 21:45 Reassessment: ED provider ordered for solumedrol and benadryl, for the patient will do rr5 CT angio and she is allergic to iodine. given the stat medication prior the procedure. CT staff informed. 22:21 Reassessment: Patient appears in no apparent distress at this time. Patient is alert, rr5 oriented x 3, equal unlabored respirations, skin warm/dry/pink. came back from CT scan denies any discomfort for now, no itchiness noted. 23:20 Reassessment: Patient appears in no apparent distress at this time. Patient is alert, rr5 oriented x 3, equal unlabored respirations, skin warm/dry/pink. awaiting for CT result. no complaints made. 10/08 00:00 Reassessment: Patient appears in no apparent distress at this time. Patient is alert, rr5 oriented x 3, equal unlabored respirations, skin warm/dry/pink. discharge instruction given and explained without complaints made. Patient denies pain at this time. Patient states feeling better. Patient states symptoms have improved. Vital Signs: 10/07 19:52 BP 167 / 105; Pulse 113; Resp 20; Temp 98.3; Pulse Ox 100% on R/A; Weight 85.28 kg (R); aj1 Height 5 ft. 6 in. (167.64 cm) (R); Pain 8/10; 21:26 BP 131 / 79; Pulse 90; Resp 16; Pulse Ox 99% ; Pain 6/10; rr5 21:55 BP 131 / 90; Pulse 85; Resp 16; Pulse Ox 99% ; rr5 22:50 BP 125 / 70; Pulse 79; Resp 17; Pulse Ox 98% ; rr5 23:54 BP 112 / 69; Pulse 70; Resp 18; Pulse Ox 99% ; rr5 10/08 00:01 BP 115 / 65; Pulse 72; Resp 15; Temp 98; Pulse Ox 99% on R/A; rr5 10/07 19:52 Body Mass Index 30.34 (85.28 kg, 167.64 cm) 1 ED Course: 10/07 19:37 Patient arrived in ED. cl3 19:52 Triage completed. aj1 19:52 Arm band placed on Patient placed in an exam room. aj1 19:56 Pablo Rene, CATALINA is Primary Nurse. rr5 19:57 Jose Gunter PA is PHCP. [facility] 19:57 Pieter Up MD is Attending Physician. [facility] 20:00 Patient has correct armband on for positive identification. Placed in gown. Bed in low rr5 position. Call light in reach. Side rails up X2. color television console monitor on. Pulse ox on. NIBP on. 20:26 XRAY Chest (1 view) In Process Unspecified. EDMS 20:30 Inserted saline lock: 20 gauge in left forearm, using aseptic technique. Blood rr5 collected. 21:28 No provider procedures requiring assistance completed. rr5 21:43 Note: Ray RN to call when patient is ready. nieves 22:21 CT Chest For PE Angio In Process Unspecified. EDMS 10/08 00:01 IV discontinued, intact, bleeding controlled, No redness/swelling at site. Pressure rr5 dressing applied. Administered Medications: 10/07 20:25 Drug: Aspirin Chewable Tablet 324 mg Route: PO; rr5 21:25 Follow up: Response: No adverse reaction rr5 20:35 Drug: NS 0.9% 1000 ml Route: IV; Rate: 1 bolus; Site: left forearm; rr5 21:30 Follow up: Response: No adverse reaction; IV Status: Completed infusion; IV Intake: rr5 1000ml 20:36 Drug: Ativan 0.5 mg Route: IVP; Site: left forearm; rr5 21:25 Follow up: Response: No adverse reaction; Pain is decreased rr5 21:40 Drug: SOLU-Medrol 125 mg Route: IVP; Site: left forearm; rr5 23:20 Follow up: Response: No adverse reaction rr5 21:42 Drug: diphenhydrAMINE 50 mg Route: IVP; Site: left forearm; rr5 22:40 Follow up: Response: No adverse reaction rr5 22:21 Drug: Pepcid 20 mg Route: IVP; Site: left forearm; rr5 23:20 Follow up: Response: No adverse reaction rr5 Intake: 21:30 IV: 1000ml; Total: 1000ml. rr5 Outcome: 23:53 Discharge ordered by MD. carvajal 10/08 00:01 Discharged to home ambulatory, with family. rr5 Condition: stable Discharge instructions given to patient, family, Instructed on discharge instructions, follow up and referral plans. Demonstrated understanding of instructions, follow-up care. 00:03 Patient left the ED. rr5 Signatures: Dispatcher [employer] EDMS Coby Fisher RN RN aj1 Jose Gunter PA PA jmm Jordan, Nathan nj Roque, Raymond, RN RN rr5 Suha George cl3 Corrections: (The following items were deleted from the chart) 10/07 21:55 21:50 Reassessment: patient does not want to talk to [facility] emergency staff. ED provider rr5 spoke to the patient encourage him to talk, security staff informed and ask for assistance. rrCristobal
--- NOTE | 2019-10-07 23:54 | EDPHYS ---
Physician Documentation [facility] Name: Apryl Chung Age: 34 yrs Sex: Female : 1985 Arrival Date: 10/07/2019 Time: 19:37 Bed 14 Private MD: ED Physician Pieter Up HPI: 10/07 20:13 This 34 yrs old Female presents to ER via Ambulatory with complaints of High [facility] Blood Pressure. 20:13 The patient or guardian reports chest pain that is located primarily in the substernal [facility] area. The pain does not radiate. Associated signs and symptoms: Pertinent positives: palpitations. The chest pain is described as aching. Duration: The patient or guardian reports a single episode. Modifying factors: The symptoms are alleviated by nothing. the symptoms are aggravated by nothing. This is a 34 year old female with a history of CVA that presents to the ED with complaints of chest pain, palpitations that began earlier today. patient states having 3 days of congestion sore throat. Just recently returned from [place]. Patient went to clinic and received two injections. Unsure of the medications. Patient developed chest pain, palpitations while planning for thanksgiving this evening. . 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 - Social history:: Smoking status: Patient/guardian denies using tobacco. - Ebola Screening: : Patient denies travel to an Ebola-affected area in the 21 days before illness onset. ROS: 20:13 Constitutional: Negative for fever, chills, and weight loss. jmm 20:13 Respiratory: Negative for shortness of breath, cough, wheezing, and pleuritic chest pain, Abdomen/GI: Negative for abdominal pain, nausea, vomiting, diarrhea, and constipation. 20:13 ENT: Positive for sore throat. 20:13 Cardiovascular: Positive for chest pain. 20:13 All other systems are negative. Exam: 20:13 Constitutional: This is a well developed, well nourished patient who is awake, alert, jmm and in no acute distress. Head/Face: atraumatic. Eyes: EOMI, no conjunctival erythema appreciated ENT: Moist Mucus Membranes Neck: Trachea midline, Supple Chest/axilla: Normal chest wall appearance and motion. 20:13 Back: Normal ROM Skin: General appearance color normal MS/ Extremity: Moves all extremities, no obvious deformities appreciated, no edema noted to the lower extremities Neuro: Awake and alert, normal gait 20:13 Cardiovascular: Rate: tachycardic, Rhythm: regular, Pulses: no pulse deficits are appreciated. 20:13 Respiratory: the patient does not display signs of respiratory distress, Respirations: normal, Breath sounds: are clear throughout. 20:13 Musculoskeletal/extremity: ROM: intact in all extremities. 20:13 Psych: Behavior/mood is anxious. Vital Signs: 19:52 BP 167 / 105; Pulse 113; Resp 20; Temp 98.3; Pulse Ox 100% on R/A; Weight 85.28 kg (R); aj1 Height 5 ft. 6 in. (167.64 cm) (R); Pain 8/10; 21:26 BP 131 / 79; Pulse 90; Resp 16; Pulse Ox 99% ; Pain 6/10; rr5 21:55 BP 131 / 90; Pulse 85; Resp 16; Pulse Ox 99% ; rr5 22:50 BP 125 / 70; Pulse 79; Resp 17; Pulse Ox 98% ; rr5 23:54 BP 112 / 69; Pulse 70; Resp 18; Pulse Ox 99% ; rr5 10/08 00:01 BP 115 / 65; Pulse 72; Resp 15; Temp 98; Pulse Ox 99% on R/A; rr5 10/07 19:52 Body Mass Index 30.34 (85.28 kg, 167.64 cm) aj1 MDM: 10/07 20:04 Patient medically screened. [facility] 23:51 Data reviewed: vital signs, nurses notes. Counseling: I had a detailed discussion with wei the patient and/or guardian regarding: the historical points, exam findings, and any diagnostic results supporting the discharge/admit diagnosis, lab results, radiology results, the need for outpatient follow up, to return to the emergency department if symptoms worsen or persist or if there are any questions or concerns that arise at home. ED course: Patient is alert and non toxicin appearance in the ED. I discussed the patient with Dr. Dee whom recommended CTA with dispo if negative. Patient advised to follow up with pcp and otherwise given strict return precautions. Patient understood and agrees with the plan of care. . 10/07 20:04 Order name: Urine Dipstick--Ancillary (enter results); Complete Time: 20:43 [facility] 10/07 20:04 Order name: Urine --Ancillary (enter results); Complete Time: 20:43 [facility] 10/07 20:05 Order name: Basic Metabolic Panel; Complete Time: 21:06 [facility] 10/07 20:05 Order name: CBC with Diff; Complete Time: 21: [facility] 10/07 20:05 Order name: LFT's; Complete Time: 21: [facility] 10/07 20:05 Order name: Magnesium; Complete Time: 21: [facility] 10/07 20:05 Order name: NT PRO-BNP; Complete Time: 21: [facility] 10/07 20:05 Order name: PT-INR; Complete Time: 21:16 [facility] 10/07 20:05 Order name: Troponin (emerg Dept Use Only); Complete Time: 21: [facility] 10/07 20:05 Order name: XRAY Chest (1 view); Complete Time: 20:43 [facility] 10/07 20:10 Order name: TSH; Complete Time: 21:21 [facility] 10/07 20:10 Order name: D-Dimer; Complete Time: 21:23 [facility] 10/07 21:05 Order name: CBC Smear Scan; Complete Time: 21:06 [facility] 10/07 21:32 Order name: CT Chest For PE Angio [facility] 10/07 20:05 Order name: EKG; Complete Time: 20: [facility] 10/07 20:05 Order name: Cardiac monitoring; Complete Time: 20:47 [facility] 10/07 20:05 Order name: EKG - Nurse/Tech; Complete Time: 20: [facility] 10/07 20:05 Order name: IV Saline Lock; Complete Time: 20:47 [facility] 10/07 20:05 Order name: Labs collected and sent; Complete Time: 20:47 [facility] 10/07 20:05 Order name: O2 Per Protocol; Complete Time: 20: [facility] 10/07 20:05 Order name: O2 Sat Monitoring; Complete Time: 20:07 [facility] Administered Medications: 20:25 Drug: Aspirin Chewable Tablet 324 mg Route: PO; rr5 21:25 Follow up: Response: No adverse reaction rr5 20:35 Drug: NS 0.9% 1000 ml Route: IV; Rate: 1 bolus; Site: left forearm; rr5 21:30 Follow up: Response: No adverse reaction; IV Status: Completed infusion; IV Intake: rr5 1000ml 20:36 Drug: Ativan 0.5 mg Route: IVP; Site: left forearm; rr5 21:25 Follow up: Response: No adverse reaction; Pain is decreased rr5 21:40 Drug: SOLU-Medrol 125 mg Route: IVP; Site: left forearm; rr5 23:20 Follow up: Response: No adverse reaction rr5 21:42 Drug: diphenhydrAMINE 50 mg Route: IVP; Site: left forearm; rr5 22:40 Follow up: Response: No adverse reaction rr5 22:21 Drug: Pepcid 20 mg Route: IVP; Site: left forearm; rr5 23:20 Follow up: Response: No adverse reaction rr5 Disposition: 10/08 06:58 Co-signature as Attending Physician, Pieter Up MD I agree with the assessment and tw4 plan of care. Disposition: 10/07/19 23:53 Discharged to Home. Impression: Chest pain, unspecified, Palpitations. - Condition is Stable. - Discharge Instructions: Nonspecific Chest Pain, Palpitations. - Medication Reconciliation Form, Thank You Letter, Antibiotic Education, Prescription Opioid Use form. - Follow up: Private Physician; When: 2 - 3 days; Reason: Recheck today's complaints, Continuance of care, Re-evaluation by your physician. Signatures: Dispatcher [employer] Coby Watson RN RN aj1 Jose Gunter PA PA jmm Wadley, Terrence, MD MD tw4 Pablo Rene RN RN rr5 Corrections: (The following items were deleted from the chart) 00:03 10/07 23:53 10/07/2019 23:53 Discharged to Home. Impression: Chest pain, unspecified; rr5 Palpitations. Condition is Stable. Forms are Medication Reconciliation Form, Thank You Letter, Antibiotic Education, Prescription Opioid Use. Follow up: Private Physician; When: 2 - 3 days; Reason: Recheck today's complaints, Continuance of care, Re-evaluation by your physician. wei
[2019-10-08 01:03] VITALS: O2SAT 99
[2019-10-08 01:16] VITALS: BP 115/65; TEMP 98
--- NOTE | 2019-10-08 09:27 | EKG ---
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
--- NOTE | 2019-10-08 11:59 | RAD REPORT ---
EXAM DESCRIPTION: CT - Chest For Pe Angio - 10/08/2019 3:43 am CLINICAL HISTORY: 34 years Female chest pain, elevated d-dimer COMPARISON: None. TECHNIQUE: Contiguous axial images obtained through the chest during the infusion of IV contrast. Re formatted images obtained. MIP reformatted images obtained. This exam was performed according to our department optimization program which includes automated exp osure control, adjustment of the mA and/or kv according to patient size and/or use of iterative recon struction technique. FINDINGS: There are bilateral breast implants. Changes from previous cholecystectomy. No pericardial effusion. The mediastinum appears unremarkable. No aneurysmal dilatation of the aorta. The study is markedly suboptimal from motion artifact which limits evaluation of the peripheral pulmo nary artery branches. No large central pulmonary embolus is identified. No consolidating infiltrates or pleural effusions. No pneumothorax. Mild scarring or atelectasis at the left lung base. IMPRESSION: The study is markedly suboptimal from motion which limits evaluation of the peripheral p ulmonary artery branches. No large central pulmonary embolus is identified. If there is continued cli nical concern, repeat imaging or VQ scanning is recommended. Electronically signed by: Vishal Selby MD 10/07/2019 10:49 PM DRONE SOFTWARE DEVELOPMENT ENGINEER Due to temporary technical issues with the PACS/Fluency reporting system, reports are being signed by the in house radiologist as a courtesy to ensure prompt reporting. The interpreting radiologist is f sunily responsible for the content of the report.
== END 2019-10-08 00:03 | disposition home or self-care (01) ==
LOC: ER 19:35
DX: R00.2 Palpitations (principal); Z91.048 Other nonmedicinal substance allergy status
CPT/HCPCS: 36415; 71045; 71275; 80048; 80076; 81003; 81025; 83735; 83880; 84443; 84484; 85025; 85379; 85610; 93005; 96361; 96374; 96375; 99284; J1200; J2930; J7030; Q9967

== ENCOUNTER 2020-07-03 14:27 | Emergency (ER) | payer SELFPAY ==
--- OUTSIDE RECORDS SUMMARY | 2020-07-03 14:29 | XMS REPORT | Clinical Summary ---
:1985 Author Organization [employer] Address [address] [place] [address] Care Team Providers Name Role Phone Adilia Hope MD Primary Care Provider Allergies Active Allergy Reactions Severity Noted Date Comments Iodine Anaphylaxis High 05/06/2017 Medications Medication Sig Dispensed Refills Start Date End Date Status levothyroxine 75 mcg/mL 0 05/11/2010 Active solution meloxicam (MOBIC) 15 mg Take 1 tablet 30 tablet 1 06/05/2019 0 07/05/2019 tablet (15 mg total) by mouth daily for 30 days. cyclobenzaprine Take 1 tablet 30 tablet 0 06/05/2019 9 (FLEXERIL) 10 mg tablet (10 mg total) by mouth nightly as needed for muscle spasms for up to 30 days. Active Problems Problem Noted Date Acute pain of left shoulder 06/05/2019 Strain of left shoulder 06/05/2019 Family History Medical History Relation Name Comments Diabetes Father Pablo abernathy Relation Name Status Comments Father Pablo abernathy Social History Tobacco Use Types Packs/Day Years Used Date Former Smoker Cigarettes 0 4 11/11/2007 - 0 11/11/2011 Smokeless Tobacco: Never Used Tobacco Cessation: Ready to Quit: No; Co unseling Given: No Comments: Not everyday maybe 2 cigarette s a week Alcohol Use Drinks/Week oz/Week Comments No Sex Assigned at Date Recorded Female 06/05/2019 9:38 AM CDT Job Start Date Occupation Industry Not on file Not on file Not on file Travel History Travel Start Travel End No recent travel history available. 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
--- OUTSIDE RECORDS SUMMARY | 2020-07-03 14:30 | XMS REPORT | Continuity of Care Document ---
:1985 Author Organization [facility] t Address [address] [place] [address] Care Team Providers Name Role Phone Jayy WILCOX, [facility] Primary Care Physician [phone] Payers Payer Name Policy Type Policy Number Effective Date Expiration Date S ource Problems Condition Condition Condition Status Onset Resolution Last Treating Co mments Source Name Details Category Date Date Treatment Clinician Date Acute pain Acute pain Disease Active [place] left of left 7-26 [facility] shoulder shoulder 00:00: st 00 Strain of Strain of Disease Active Sharona ston left left 7-26 [facility] shoulder shoulder 00:00: st 00 Allergies, Adverse Reactions, Alerts Allergy Allergy Status Severity Reaction(s) Onset Inactive Treating Comm ents Source Name Type Date Date Clinician Iodinate DA [place] [facility] [place] Contrast 00:00: d - Oral [facility] Iod[facility] DA Active [facility] [place] Contrast 00:00: d - Oral 00 [facility] Dye pineappl DA Active [facility] [place] 00:00: d 00 [facility] Iodinate DA Active [place] [facility] [place] Contrast 00:00: Ramos - Oral 00 [facility] and [facility] l Dye [facility] Center Iodine Propensi Active Anaphylaxis Sharona ston ty to 05-06 [facility] adverse 00:00: st reaction 00 s to drug Iodinate DA Active [facility] 6-05 Clear Contrast 00:00: Ramos - Oral 00 [facility] pineappl DA Active [place] [facility] 6[facility] Clear 00:00: Ramos 00 [facility] Family History Family Member Diagnosis Comments Start Date Stop Date Source Natural father Diabetes [facility] Social History Social Habit Start Date Stop Date Quantity Comments Source Sex Assigned At F [place] [facility] Alcohol intake 2019-06-05 2019-06-05 Current [facility] 00:00:00 00:00:00 non-drinker of alcohol (finding) Tobacco Comment 2019-06-05 2019-06-05 Not everyday maybe H mendez Randall 00:00:00 00:00:00 2 cigarettes a week History of 2007-11-11 2011-11-11 [facility]:00 Smoking Status Start Date Stop Date Source Former smoker 2019-06-05 00:00:00 2019-06-05 00:00:00 Parth Randall Medications Ordered Filled Start Stop Current Ordering Indication Dosage Frequency Signature Comments Components Source Medication Medication Date Date Medication? Clinician (SIG) Name Name meloxicam 2019- No 15mg QD Take 1 [place] on (MOBIC) 15 06-05-25 tablet (15 Me thodi mg tablet 00:00: 23:59 mg total) st 00 :00 by mouth daily for 30 days. cyclobenzap 2018- No 10mg QD Take 1 Sharona ston rine 06-05-25 tablet (10 [facility] (FLEXERIL) 00:00: 23:59 mg total) s t 10 mg 00 :00 by mouth tablet nightly as needed for muscle spasms for up to 30 days. levothyroxi Yes Nikos hayes ne 75 05-11 [facility] mcg/mL 00:00: st solution 00 Procedures This patient has no known procedures. Plan of Care Planned Activity Planned Date Details Comments Source Future Scheduled 2020-08-11 INFLUENZA VACCINE Nikos Randall Test 00:00:00 [code = INFLUENZA VACCINE] Future Scheduled 2005 Screening for [facility]odist Test 00:00:00 malignant neoplasm of cervix (procedure) [code = 522889857] Results Test Description Test Time Test Comments Results Result [facility] e Comments - CT ANGIO HEAD 2019-03-21 Name: ESTEE 09:40:00 CATRACHITOKERRY ALDANA : 1985 Age/S: 33 / F [address] Unit #: [id number] Loc: [place] [address] Phys: Delano Vargas MD Acct: [id number] Dis Date: Status: ADM IN PHONE #: [phone] Exam Date: 03/21/2019919 FAX #: Reason: stroke EXAMS: CPT: [id number] CT ANGIO HEAD [address] Location: T 18 CTA of the brain 03/21/19 TECHNIQUE: CTA examination of the ougxzh-vp-Neqqsa was performed on a helical scanner with [...] images only acquired. IMPRESSION: Normal CTA examination elksvq-dc-Qsrmdy at 0940 Reported and signed by: Maryse Mclaughlin M.D. PAGE 1 Signed Report (CONTINUED) [facility] [place] : 1985 Age/S: 33 / F [address] Unit #: [id number] Loc: [place] [address] Phys: Delano Vargas MD Acct: [id number] Dis Date: Status: ADM IN PHONE #: [phone] Exam Date: 03/21/2019919 FAX #: Reason: stroke EXAMS: CPT: [id number] CT ANGIO HEAD [address] <Continued> CC: Delano Vargas MD; Bhavin Rivera MD Technologist:John Cristobal, RT(R)(MR); Teni CTDI: DLP: Trnscb Date/Time: 03/21/2019 (939) tALMA [email or web address] Orig Print D/T: S: 03/21/2019 (942) PAGE 2 Signed Report - CT ANGIO NECK 2019-03-21 Name: ESTEE 09:37:00 [facility] [place] : 1985 Age/S: 33 / F [address] Unit #: [id number] Loc: [place] [address] Phys: Delano Vargas MD Acct: [id number] Dis Date: Status: ADM IN PHONE #: [phone] Exam Date: 03/21/2019919 FAX #: Reason: stroke EXAMS: CPT: [id number] CT ANGIO NECK [address] Location: T 18 CTA neck, 03/21/19 TECHNIQUE: [...] 1 Signed Report (CONTINUED) Name: KERRY LU [place] : 1985 Age/S: 33 / F [address] Unit #: [id number] Loc: [place] [address] Phys: Delano Vargas MD Acct: [id number] Dis Date: Status: ADM IN PHONE #: [phone] Exam Date: 03/21/2019919 FAX #: Reason: stroke EXAMS: CPT: [id number] CT ANGIO NECK [address] <Continued> at 0937 Reported and signed by: Maryse Mclaughlin M.D. CC: Delano Vargas MD; Bhavin Rivera MD Technologist:RT Elieser(R)(MR); Micah CTDI: DLP: Trnscb Date/Time: 03/21/2019 (936) [email or web address] Orig Print D/T: S: 03/21/2019 (0941) PAGE 2 Signed Report BASIC METABOLIC PANEL 2019-03-21 08:14:00 Test Item Value Reference Range Interpretation Comme nts SODIUM (test code = NA) 140 mmol/L 134-147 N POTASSIUM (test code = K) 4.2 mmol/L 3.4-5.0 N CHLORIDE (test code = CL) 108 mmol/L 100-108 N CARBON DIOXIDE (test code = CO2) 27 mmol/L 21-32 N ANION GAP (test code = GAP) 5.0 GAP calc 4.0-15.0 N GLUCOSE (test code = GLU) 121 MG/DL 70-110 H BLOOD UREA NITROGEN (test code = BUN) 8 MG/DL 7-18 N GLOMERULAR FILTRATION RATE (test code = GFR) >=60 max estimate estG FR >60 CREATININE (test code = CREAT) 0.8 MG/DL 0.6-1.0 N CALCIUM (test code = CA) 8.8 MG/DL 8.5-10.1 N GLUCOSE BEDSIDE [id number] 08:12:00 Test Item Value Reference Range Interpretation Comments GLUCOSE BEDSIDE TESTING (test code 121 mg/dL 70-110 H = GLUBED) CBC W/AUTO [id number] 08:11:00 Test Item Value Reference Range Interpretation Comments WHITE BLOOD CELL (test code = 15.6 K/mm3 3.5-11.0 H WBC) RED BLOOD CELL (test code = RBC) 4.23 M/mm3 4.70-6.10 L HEMOGLOBIN (test code = HGB) 12.8 G/DL 10.4-14.9 N HEMATOCRIT (test code = HCT) 39.0 % 31.5-44.1 N MEAN CELL VOLUME (test code = 92.2 Fl 84.5-98.6 N MCV) MEAN CELL HGB (test code = MCH) 30.3 pg 27.0-34.2 N MEAN CELL HGB CONCETRATION (test 32.8 G/DL 31.5-34.0 N code = MCHC) RED CELL DISTRIBUTION WIDTH (test 11.9 SD 11.5-14.5 N code = RDW) PLATELET COUNT (test code = PLT) 240.0 K/mm3 150-450 N MEAN PLATELET VOLUME (test code = 11.00 fL 7.0-10.5 H MPV) NEUTROPHIL % (test code = NT%) 91.3 % 40-76 H LYMPHOCYTE % (test code = LY%) 7.2 % 20.5-51.1 L MONOCYTE % (test code = MO%) 1.5 % 1.7-9.3 L EOSINOPHIL % (test code = EO%) 0.0 % 0.0-6.0 N BASOPHIL % (test code = BA%) 0.0 % 0.0-2.0 N NEUTROPHIL # (test code = NT#) 14.24 K/mm3 1.8-7.6 H LYMPHOCYTE # (test code = LY#) 1.1 K/mm3 0.6-3.2 N MONOCYTE # (test code = MO#) 0.2 K/mm3 0.3-1.1 L EOSINOPHIL # (test code = EO#) 0.0 K/mm3 0.0-0.4 N BASOPHIL # (test code = BA#) 0.0 K/mm3 0.0-0.1 N MANUAL DIFF REQUIRED (test code = NO DIFF/SCN CRITERIA MDIFF) GLUCOSE BEDSIDE [id number] 00:54:00 Test Item Value Reference Range Interpretation Comments GLUCOSE BEDSIDE TESTING (test code 119 mg/dL 70-110 H = GLUBED) SED [id number] 12:08:00 Test Item Value Reference Range Interpretation Comments SED RATE (test code = SEDW) 11 mm/hr 0-20 N BASIC METABOLIC [id number] 11:19:00 Test Item Value Reference Range Interpretation Comments SODIUM (test code = NA) 141 mmol/L 134-147 N POTASSIUM (test code = 4.6 mmol/L 3.4-5.0 N K) CHLORIDE (test code = 108 mmol/L 100-108 N CL) CARBON DIOXIDE (test 26 mmol/L 21-32 N code = CO2) ANION GAP (test code = 7.0 GAP calc 4.0-15.0 N GAP) GLUCOSE (test code = 94 MG/DL 70-110 N GLU) BLOOD UREA NITROGEN 12 MG/DL 7-18 N (test code = BUN) GLOMERULAR FILTRATION >=60 max estimate >60 RATE (test code = GFR) estGFR CREATININE (test code = 0.9 MG/DL 0.6-1.0 N CREAT) CALCIUM (test code = CA) 8.7 MG/DL 8.5-10.1 N CBC W/AUTO [id number] 11:03:00 Test Item Value Reference Range Interpretation Comments WHITE BLOOD CELL (test code = 6.8 K/mm3 3.5-11.0 N WBC) RED BLOOD CELL (test code = RBC) 4.10 M/mm3 4.70-6.10 L HEMOGLOBIN (test code = HGB) 12.5 G/DL 10.4-14.9 N HEMATOCRIT (test code = HCT) 38.3 % 31.5-44.1 N MEAN CELL VOLUME (test code = 93.4 Fl 84.5-98.6 N MCV) MEAN CELL HGB (test code = MCH) 30.5 pg 27.0-34.2 N MEAN CELL HGB CONCETRATION (test 32.6 G/DL 31.5-34.0 N code = MCHC) RED CELL DISTRIBUTION WIDTH (test 12.0 SD 11.5-14.5 N code = RDW) PLATELET COUNT (test code = PLT) 212.0 K/mm3 150-450 N MEAN PLATELET VOLUME (test code = 10.60 fL 7.0-10.5 H MPV) NEUTROPHIL % (test code = NT%) 65.5 % 40-76 LYMPHOCYTE % (test code = LY%) 24.4 % 20.5-51.1 N MONOCYTE % (test code = MO%) 6.2 % 1.7-9.3 N EOSINOPHIL % (test code = EO%) 3.8 % 0.0-6.0 N BASOPHIL % (test code = BA%) 0.1 % 0.0-2.0 N NEUTROPHIL # (test code = NT#) 4.43 K/mm3 1.8-7.6 N LYMPHOCYTE # (test code = LY#) 1.7 K/mm3 0.6-3.2 N MONOCYTE # (test code = MO#) 0.4 K/mm3 0.3-1.1 N EOSINOPHIL # (test code = EO#) 0.3 K/mm3 0.0-0.4 N BASOPHIL # (test code = BA#) 0.0 K/mm3 0.0-0.1 N MANUAL DIFF REQUIRED (test code = NO DIFF/SCN CRITERIA MDIFF) GLUCOSE BEDSIDE [id number] 20:04:00 Test Item Value Reference Range Interpretation Comments GLUCOSE BEDSIDE TESTING (test code = 98 mg/dL 70-110 N GLUBED) GLUCOSE BEDSIDE [id number] 16:16:00 Test Item Value Reference Range Interpretation Comments GLUCOSE BEDSIDE TESTING (test code = 92 mg/dL 70-110 N GLUBED) - MRA NECK W/O [id number] 13:33:00 FAX: Bhavin Rivera MD [phone] Camps: PM St: ADM FAX: Radha Mann MD Name: KERRY LU : 1985 Age/S: 33/F [address] Unit #: [id number] Loc: [address] [place] [address] Phys: Radha Mann MD Acct: [id number] Dis Date: Status: ADM IN PHONE #: [phone] Exam Date: 03/19/2019 1226 FAX #: Reason: neck manipulation EXAMS: CPT: [id number] MRA NECK W/O CONT 43560 Location code: B2 MRA Carotid Bifurcations Indication: [...] common carotid artery is patent, as are th e distal internal and external carotid arteries. The vertebral arteries are patent andcodominant. Impression: Possible moderate stenosis at the origin of the right internal and external carotid arteries and mild stenosis at the origin of the left internal and external carotid arteries versus flow related artifact. Consider carotid sonogram to confirm the degree of stenosis. at 1333 Reported and signed by: Clemente Nicole M.D. PAGE 1 Signed Report (CONTINUED) FAX: Bhavin Rivera MD [phone] Camps: PM St: ADM FAX: Radha Mann MD Name: TATYANA LU [place] : 1985 Age/S: 33/F [address] Unit #: [id number] Loc: [place] [address] Phys: Yoli Mann Acct: [id number] Dis Date: Stat us: ADM IN PHONE #: [phone] Exam Date: 03/19/2019 1226 FAX #: Reason: neck manipulation EXAMS: CPT: [id number] MRA NECK W/O CONT 38701 <Continued>CC: Bhavin Rivera MD; Radha Mann MD Technologist: RT Wilma(R)(MR); ... Transcribed Date/Time/By: 03/19/2019 (3329) :[email or web address] Orig Print D/T: S: 03/19/2019 (8413) PAGE 2 Signed Report- MRI C-SPINE W/O [id number] 13:26:00 FAX: Bhavin Rivera MD [phone] Camps: PM St: ADM FAX: Radha Mann MD [facility]: [facility] [place] : 1985 Age/S: 33/F [address] [address] Unit #: [id number] Loc: [place] [address] Phys: Radha Mann MD Acct: [id number] Dis Date: Status: ADM IN PHONE #: [phone] Exam Date: 03/19/2019 1252 FAX #: Reason: neck manipulation EXAMS: CPT: [id number] MRI C-SPINE W/O CONT 70853 Location code:B2 MRI Cervical Spine Indication: Trauma. [...] clinically. PAGE 1 Signed Report (CONTINUED) FAX: Bhavin Rivera MD [phone] Camps: PM St: ADM FAX: Radha Mann MD Name: NARINDERVALERIEDAYLIN SALASKERRY [facility] : 1985 Age/S: 33/F [address] [address] Unit #: [id number] Loc: [address] [facility] [address] Phys: Radha Mann MD Acct: [id number] Dis Date: Status: ADM IN PHONE #: [phone] Exam Date: 03/19/2019 1252 FAX #: Reason: neckmanipulation EXAMS: CPT: [id number] MRI C-SPINE W/O CONT 56816 <Continued> 2. Mild disc bulges 1 to 1.5 mm at C3-4, C4-5 and C5-6. 3. Chronic sinusitis is incidentally noted. A 2 cm retention cyst is present in the left maxillary antrum. at 1326 Reported and signed by: Clemente Hammond M.D. CC: Bhavin Rivera MD; Radha Mann MD Technologist: Ayleen Barrios, RT(R)(MR); ... Transcribed Date/Time/By: 03/19/2019 (6567) :[email or web address] Orig Print D/T: S: 03/19/2019 (6746) PAGE 2 Signed Report- MRI BRAIN W/O [id number] 13:23:00 FAX: Bhavin Rivera MD [phone] Camps: PM St: ADM FAX: Ronda Veloz [phone] Name: KERRY LU [facility] : 1985 Age/S: 33/F [address] [facility] Unit #: [id number] Loc: [address] [place] [address] Phys: Bhavin Rivera MD Acct: [id number] Dis Date: Status: ADM IN PHONE #: [phone] Exam Date: 03/19/2019 120 FAX #: Reason: ISCHEMIC STROKE EXAMS: CPT: [id number] MRI BRAIN W/O CONTRAST 10625 Location code:B2 MRI Brain Indication: ISCHEMIC STROKE. Comparison: None Technique: Long and short axis fat and water weighted sequences were obtained Findings: Cerebral and cortical sulci and ventricular system are normal in caliber for patient age. No evidence of intracranial mass, mass effect, or focal extra-axial fluid collection. No evidence of infarct Brain signal intensitywithin normal limits. Cerebellum and brainstem unremarkable. Otomastoid r egion is clear. 2 cm retention cyst in the left maxillary antrum. Craniocervical junction within normal limits. Orbits are grossly unremarkable. Vertebrobasilar and internal carotid arteries are patent. Impression: 1. Unremarkable MRI brain. PAGE 1 Signed Report (CONTINUED) FAX: Bhavin Rivera MD [phone] Camps: PM St: ADM FAX: Ronda Veloz [phone] Name: TOMMYCHELLEDAYLIN MONSEKERRY CHARLES [facility] : 1985 Age/S: 33/F [address] [facility] Unit #: [id number] Loc: [address] [address] Phys: Bhavin Rivera MD Acct: [id number] Dis Date: Status: ADM IN PHONE #: [phone] Exam Date: 03/19/2019 1204 FAX #: Reason: ISCHEMIC STROKE EXAMS: CPT: [id number] MRI BRAIN W/O CONTRAST 55644 <Continued> at 1323 Reported and signed by: Clemente Nicole M.D. CC: Bhavin Rivera MD; Ronda POZO Technologist: Ayleen Barrios, RT(R)(MR) Transcribed Date/Time/By: 03/19/2019 (6623) :[email or web address] Orig Print D/T: S: 03/19/2019 (8200) PAGE 2 Signed ReportGLUCOSE BEDSIDE [id number] 13:17:00 Test Item Value Reference Range Interpretation Comments GLUCOSE BEDSIDE TESTING (test code = 80 mg/dL 70-110 N GLUBED) - DUP EXTRACRANIAL [id number] 10:02:00 Name: KERRY LU [facility] : 1985 Age/S: 33 / F [address] [address] Unit #: [id number] Loc: [place] [address] Phys: Bhavin Rivera MD Acct: [id number] Dis Date: Status: ADM IN PHONE #: [phone] Exam Date: 03/19/2019 0840 FAX #: Reason: ISCHEMIC STROKE EXAMS: CPT: [id number] DUP EXTRACRANIAL MICHAEL 31351 Carotid Doppler ultrasound History: ISCHEMIC STROKE Comparison: None at this time Location: R16 Carotid Doppler ultrasound with color flow was performed of [facility] common carotid and internal carotid and external [...] 1 Signed Report (CONTINUED) [facility]: [facility] [place] : 1985 Age/S: 33 / F [address] [facility] Unit #: [id number] Loc: [place] [address] Phys: Bhavin Rivera MD Acct: [id number] Dis Date: Status: ADM IN PHONE #: [phone] Exam Date: 03/19/2019 0840 FAX #: Reason: ISCHEMIC STROKE EXAMS: CPT: [id number] DUP EXTRACRANIAL MICHAEL [address] < Continued> CC: Bhavin Rivera MD; Ronda POZO Technologist: Xuan Bettencourt, RT(R),BLAYNE(AB) Trnscb Date/Time: 03/19/2019 (1001) t.SDR.PMT PAGE 2 Signed Report Name: KERRY LU [place] : 1985 Age/S: 33 / F [address] [address] Unit #: [id number] Loc: [place] [address] Phys: Bhavin Rivera MD Acct: [id number] Dis Date: Status: ADM IN PHONE #: [phone] Exam Date: 03/19/2019 0840 FAX #: Reason: ISCH EMIC STROKE EXAMS:CPT: [id number] DUP EXTRACRANIAL MICHAEL [address]5595 <Continued> Orig Print D/T: S: 03/19/2019 (1005) Probe: PAGE 3 Signed ReportGLUCOSE BEDSIDE [id number] 07:39:00 Test Item Value Reference Range Interpretation Comments GLUCOSE BEDSIDE TESTING (test code 100 mg/dL 70-110 N = GLUBED) [id number] 06:55:00 Test Item Value Reference Range Interpretation Comments GLYCOSYLATED HEMOGLOBIN (HA1C) 5.1 % A1C 4.2-6.3 N (test code = GLYHGB) ESTIMATED AVERAGE GLUCOSE (test 100 MG/DLest code = EAG) COMPREHENSIVE METABOLIC [id number] 06:43:00 Test Item Value Reference Range Interpretation Comments SODIUM (test code = NA) 142 mmol/L 134-147 N POTASSIUM (test code = 3.4 mmol/L 3.4-5.0 N K) CHLORIDE (test code = 109 mmol/L 100-108 H CL) CARBON DIOXIDE (test 24 mmol/L 21-32 N code = CO2) ANION GAP (test code = 9.0 GAP calc 4.0-15.0 N GAP) GLUCOSE (test code = 97 MG/DL 70-110 N GLU) BLOOD UREA NITROGEN 12 MG/DL 7-18 N (test code = BUN) GLOMERULAR FILTRATION >=60 max estimate >60 RATE (test code = GFR) estGFR CREATININE (test code = 0.8 MG/DL 0.6-1.0 N CREAT) TOTAL PROTEIN (test code 6.9 G/DL 6.4-8.2 N = PROT) ALBUMIN (test code = 3.4 G/DL 3.4-5.0 N ALB) GLOBULIN (test code = 3.5 GM/dL GLOB) ALBUMIN/GLOBULIN RATIO 1.0 RATIO 1.2-2.2 L (test code = A/G) CALCIUM (test code = CA) 8.0 MG/DL 8.5-10.1 L BILIRUBIN TOTAL (test 0.70 MG/DL 0.2-1.2 N code = BILT) SGOT/AST (test code = 15 Unit/L 15-37 N AST) SGPT/ALT (test code = 14 Unit/L 12-78 N ALT) ALKALINE PHOSPHATASE 62 Unit/L 45-117 N TOTAL (test code = ALKP) T4 [id number] 06:43:00 Test Item Value Reference Range Interpretation Comments T4 FREE (test code = T4F) 0.95 NG/DL 0.89-1.76 N THYROID STIMULATING [id number] 06:43:00 Test Item Value Reference Range Interpretation Comments THYROID STIMULATING HORMONE 15.100 mcIU/ML 0.340-4.820 H (test code = TSH) LIPID PROFILE (CORONARY RISK)2019-03-19 06:40:00 Test Item Value Reference Range Interpretation Comments TRIGLYCERIDES (test code = TRIG) 156 MG/DL 0-150 H CHOLESTEROL (test code = CHOL) 158 MG/DL 133-200 N CHOLESTEROL/HDL RATIO (test code = 3.76 RATIO >0 CHOLHDL) HDL CHOLESTEROL (test code = HDL) 42 MG/DL 40-59 N NON-HDL CHOLESTEROL (test code = 116 mg/dL <130 NHDL) LIPOPROTEIN LDL (test code = LDL) 94 MG/DL 0-129 N LDL/HDL (test code = LDL/HDL) 2.23 Ratio 1.48-3.22 Avg N Completed by Nursing: NOComment: FASTING IN [id number] 06:40:00 Test Item Value Reference Range Interpretation Comments TROPONIN-I (test < 0.015 NG/ML 0.000-0.045 N Negative: </= 0.045 code = TROPI) Positive: >/= 0.046 Correlation wit h serial results, other cardiac markers, and cl inical findings is nec essary to determine the c linical significance of this result. Quantit ative results using d ifferent methodologies s hould not be compared to one another as nume rical results may bang yby method. Completed by Nursing: NOComment: FASTING IN [facility] W/AUTO [id number] 06:32:00 Test Item Value Reference Range Interpretation Comments WHITE BLOOD CELL (test code = 6.4 K/mm3 3.5-11.0 N WBC) RED BLOOD CELL (test code = RBC) 3.99 M/mm3 4.70-6.10 L HEMOGLOBIN (test code = HGB) 12.2 G/DL 10.4-14.9 N HEMATOCRIT (test code = HCT) 35.9 % 31.5-44.1 N MEAN CELL VOLUME (test code = 90.0 Fl 84.5-98.6 N MCV) MEAN CELL HGB (test code = MCH) 30.6 pg 27.0-34.2 N MEAN CELL HGB CONCETRATION (test 34.0 G/DL 31.5-34.0 N code = MCHC) RED CELL DISTRIBUTION WIDTH (test 12.1 SD 11.5-14.5 N code = RDW) PLATELET COUNT (test code = PLT) 240.0 K/mm3 150-450 N MEAN PLATELET VOLUME (test code = 10.70 fL 7.0-10.5 H MPV) NEUTROPHIL % (test code = NT%) 51.3 % 40-76 N LYMPHOCYTE % (test code = LY%) 36.0 % 20.5-51.1 N MONOCYTE % (test code = MO%) 7.7 % 1.7-9.3 N EOSINOPHIL % (test code = EO%) 4.7 % 0.0-6.0 N BASOPHIL % (test code = BA%) 0.3 % 0.0-2.0 N NEUTROPHIL # (test code = NT#) 3.28 K/mm3 1.8-7.6 N LYMPHOCYTE # (test code = LY#) 2.3 K/mm3 0.6-3.2 N MONOCYTE # (test code = MO#) 0.5 K/mm3 0.3-1.1 N EOSINOPHIL # (test code = EO#) 0.3 K/mm3 0.0-0.4 N BASOPHIL # (test code = BA#) 0.0 K/mm3 0.0-0.1 N MANUAL DIFF REQUIRED (test code = NO DIFF/SCN CRITERIA MDIFF) [id number] 03:05:00 Test Item Value Reference Range Interpretation Comments TROPONIN-I (test < 0.015 NG/ML 0.000-0.045 N Negative: </= 0.045 code = TROPI) Positive: >/= 0.046 Correlation wit h serial results, other cardiac markers, and cl inical findings is nec essary to determine the c linical significance of this result. Quantit ative results using d ifferent methodologies s hould not be compared to one another as nume rical results may bang yby method. Completed by Nursing: NOURINALYSIS [id number] 02:57:00 Test Item Value Reference Range Interpretation Comments UA GLUCOSE DIPSTICK (test NEGATIVE mg/dL NEG code = DGLUU) UA BILIRUBIN DIPSTICK (test NEGATIVE mg/dL NEG code = BILU) UA KETONE DIPSTICK (test NEGATIVE mg/dL NEG code = KETU) UA SPECIFIC GRAVITY (test 1.015 SG 1.005-1.030 code = SGU) UA BLOOD DIPSTICK (test NEGATIVE mg/DL NEG code = SUNDAR) UA PH DIPSTICK (test code = 6.0 pH UNITS 5.0-7.0 CHARBEL) UA PROTEIN DIPSTICK (test NEGATIVE mg/dL NEG code = PROU) UA UROBILINIOGEN DIPSTICK 0.2 mg/dL <2.0 (test code = URO) UA NITRITE DIPSTICK (test NEGATIVE SCREEN NEG code = MANNY) UA LEUKOCYTE ESTERASE NEGATIVE Leuk/mcL NEGATIVE DIPSTICK (test code = LEUU) Urine Specimen Type: Clean CatchUR HCG [id number] 02:57:00 Test Item Value Reference Range Interpretation Comments UR HCG QUAL (test code = HCGQLU) NEGATIVE NEGATIVE Urine Specimen Type: Clean CatchURINALYSIS [id number] 02:49:00 Test Item Value Reference Range Interpretation Comments UA GLUCOSE DIPSTICK (test NEGATIVE mg/dL NEG code = DGLUU) UA BILIRUBIN DIPSTICK (test NEGATIVE mg/dL NEG code = BILU) UA KETONE DIPSTICK (test NEGATIVE mg/dL NEG code = KETU) UA SPECIFIC GRAVITY (test 1.015 SG 1.005-1.030 code = SGU) UA BLOOD DIPSTICK (test NEGATIVE mg/DL NEG code = SUNDAR) UA PH DIPSTICK (test code = 6.0 pH UNITS 5.0-7.0 CHARBEL) UA PROTEIN DIPSTICK (test NEGATIVE mg/dL NEG code = PROU) UA UROBILINIOGEN DIPSTICK 0.2 mg/dL <2.0 (test code = URO) UA NITRITE DIPSTICK (test NEGATIVE SCREEN NEG code = MANNY) UA LEUKOCYTE ESTERASE NEGATIVE Leuk/mcL NEGATIVE DIPSTICK (test code = LEUU) Urine Specimen Type: Clean CatchUR HCG [id number] 02:49:00 Test Item Value Reference Range Interpretation Comments UR HCG QUAL (test code = HCGQLU) NEGATIVE Urine Specimen Type: Clean [id number] 00:22:00 Test Item Value Reference Range Interpretation Comments TROPONIN-I (test < 0.015 NG/ML 0.000-0.045 N Negative: </= 0.045 code = TROPI) Positive: >/= 0.046 Correlation wit h serial results, other cardiac markers, and cl inical findings is nec essary to determine the c linical significance of this result. Quantit ative results using d ifferent methodologies s hould not be compared to one another as nume rical results may bang yby method. Completed by Nursing: NOGLUCOSE BEDSIDE [id number] 23:30:00 Test Item Value Reference Range Interpretation Comments GLUCOSE BEDSIDE TESTING (test code 147 mg/dL 70-110 H = GLUBED)
[2020-07-03 15:03] LABS: Urine Blood NEGATIVE (NEG); Urine Glucose NEGATIVE (NEG); Urine Protein NEGATIVE (NEG)
[2020-07-03] MEDS ORDERED: METOCLOPRAMIDE 10 MG/2mL INJ ONE (15:29)
[2020-07-03] MEDS ORDERED: NA CHLORIDE 0.9% 1,000 ML ONE (15:30)
[2020-07-03] MEDS ORDERED: DIPHENHYDRAMINE 50 MG/ML VIAL ONE (15:30)
[2020-07-03 15:40] LABS: Absolute Lymphocytes (CBC) 1.5 K/uL (0.7-4.9); Basophils % 0.5 % (0-1.3); Hematocrit 39.4 % (36.0-45.0); Lymphocytes % 27.4 % (15.3-44.8); MPV 8.9 fL (7.6-11.3)
[2020-07-03 15:58] LABS: Albumin 3.8 g/dL (3.4-5.0); Bilirubin Direct 0.1 mg/dL (0-0.2); Bilirubin Total 0.6 mg/dL (0.2-1.0); Potassium 3.8 mmol/L (3.5-5.1); Protein, Total 8.3 g/dL (6.4-8.2)
--- NOTE | 2020-07-03 16:46 | RAD REPORT ---
EXAM DESCRIPTION: CT - Stone Protocol - 07/03/2020 4:35 pm CLINICAL HISTORY: abdominal pain, vomiting, diarrhea COMPARISON: No comparisons TECHNIQUE: Axial 3 mm thick images were obtained without oral or IV contrast. The [id number] span s the entirety of the system including uppermost abdomen and lung bases. All CT scans are performed using dose optimization technique as appropriate and may include automated exposure control or mA/KV adjustment according to patient size. FINDINGS: No hydronephrosis is present and no obstructing ureteral calculi. No nonobstructing calcul i seen. No suspicious renal masses. Isodense masses and pyelonephritis are not excluded on a stone pr otocol CT scan. No significant adrenal finding. No urinary bladder suspicious finding. No COUNTY ADMINISTRATOR abnorma lities. Imaged portions of the liver, spleen and pancreas show no suspicious findings on non-contrast imaging . Gallbladder is absent. No biliary tree dilatation. No dilated bowel loops or focal bowel wall thickening. Minimal sub centimeter mesenteric lymph nodes seen. No evidence for appendicitis. No active GI process seen. No hernia, mass or bulky lymphadenopathy noted. No free air, free fluid or inflammatory stranding. No significant bony abnormality. IMPRESSION: Noncontrast CT abdomen and pelvis imaging shows no significant or suspicious finding. Isodense masses and pyelonephritis are not excluded on stone protocol technique.Overall assessment is limited in the absence of contrast.
[2020-07-03] MEDS ORDERED: FAMOTIDINE 20 MG/2 ML VIAL IV ONE (16:59)
--- NOTE | 2020-07-03 17:34 | EDPHYS ---
Physician Documentation [facility] Name: Apryl Chung Age: 34 yrs Sex: Female : 1985 Arrival Date: 07/03/2020 Time: 14:27 Bed 19 Private MD: ADRIEN Physician Luis Kraft HPI: 07/03 15:15 This 34 yrs old Female presents to ER via Wheelchair with complaints of Vomiting, jmm Weakness. 15:15 The patient presents to the emergency department with nausea, vomiting, diarrhea, jmm abdominal pain. Onset: The symptoms/episode began/occurred gradually, 2 day(s) ago. Possible causes: unknown. The symptoms are aggravated by nothing. The symptoms are alleviated by nothing. Associated signs and symptoms: Pertinent positives: abdominal pain, diarrhea, vomiting, Pertinent negatives: fever. The patient has not experienced similar symptoms in the past. 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 - Social history:: Smoking status: Patient/guardian denies using tobacco, the patient reports quitting approximately 2 years ago. ROS: 15:15 Cardiovascular: Negative for chest pain, palpitations, and edema, Respiratory: Negative jmm for shortness of breath, cough, wheezing, and pleuritic chest pain. 15:15 Constitutional: Positive for fatigue. 15:15 Abdomen/GI: Positive for abdominal pain, nausea and vomiting, diarrhea. 15:15 All other systems are negative. Exam: 15:15 Constitutional: This is a well developed, well nourished patient who is awake, alert, jmm and in no acute distress. Head/Face: atraumatic. Eyes: EOMI, no conjunctival erythema appreciated ENT: Moist Mucus Membranes Neck: Trachea midline, Supple Chest/axilla: Normal chest wall appearance and motion. Cardiovascular: Regular rate and rhythm. No edema appreciated Respiratory: Normal respirations, no respiratory distress appreciated 15:15 Back: Normal ROM Skin: General appearance color normal MS/ Extremity: Moves all extremities, no obvious deformities appreciated, no edema noted to the lower extremities Neuro: Awake and alert, normal gait Psych: Behavior is normal, Mood is normal, Patient is cooperative and pleasant 15:15 Abdomen/GI: Inspection: abdomen appears normal, Bowel sounds: normal, Palpation: abdomen is soft and non-tender, in all quadrants. Vital Signs: 14:37 BP 140 / 97; Pulse 71; Resp 17; Temp 98.7; Pulse Ox 100% ; Weight 80.74 kg; Height 5 jl7 ft. 6 in. (167.64 cm); Pain 6/10; 15:30 BP 137 / 96; Pulse 62; Resp 15; Pulse Ox 100% on R/A; ca1 16:45 BP 107 / 70; Pulse 68; Resp 17 S; Pulse Ox 98% on R/A; ca1 17:55 BP 101 / 71; Pulse 58; Resp 15 S; Pulse Ox 99% on R/A; ca1 14:37 Body Mass Index 28.73 (80.74 kg, 167.64 cm) jl7 MDM: 15:17 Patient medically screened. wei 17:32 Data reviewed: vital signs, nurses notes. Counseling: I had a detailed discussion with wei the patient and/or guardian regarding: the historical points, exam findings, and any diagnostic results supporting the discharge/admit diagnosis, lab results, radiology results, the need for outpatient follow up, to return to the emergency department if symptoms worsen or persist or if there are any questions or concerns that arise at home. ED course: Labs, imaging studies WNL. Patient advised to follow up with GI for further evaluation. I do not suspect an acute intrabdominal process. Patient is otherwise given strict return precautions. Patient understood and agrees with the plan of care. . 07/03 14:57 Order name: Urine Dipstick--Ancillary (enter results); Complete Time: 15:28 ct 07/03 14:57 Order name: Urine --Ancillary (enter results); Complete Time: 15:28 ct 07/03 15:15 Order name: Basic Metabolic Panel; Complete Time: 15:59 [facility] 07/03 15:15 Order name: CBC with Diff; Complete Time: 15:59 [facility] 07/03 15:15 Order name: Hepatic Function; Complete Time: 15:59 [facility] 07/03 15:15 Order name: Lipase; Complete Time: 15:59 [facility] 07/03 15:15 Order name: IV Saline Lock; Complete Time: 15:36 [facility] 07/03 15:15 Order name: Labs collected and sent; Complete Time: 15:36 [facility] 07/03 15:59 Order name: CT Stone Protocol; Complete Time: 16:49 [facility] Administered Medications: 15:25 Drug: NS 0.9% 1000 ml Route: IV; Rate: 1 bolus; Site: right antecubital; ca1 16:52 Follow up: Response: No adverse reaction; IV Status: Completed infusion; IV Intake: ca1 1000ml 15:26 Drug: diphenhydrAMINE 12.5 mg Route: IVP; Site: right antecubital; ca1 16:52 Follow up: Response: No adverse reaction; Pain is decreased ca1 15:29 Drug: Reglan 10 mg Route: IVP; Site: right antecubital; ca1 16:52 Follow up: Response: No adverse reaction; Pain is decreased; Nausea is decreased ca1 16:52 Drug: Pepcid 20 mg Route: IVP; Site: right antecubital; ca1 18:00 Follow up: Response: No adverse reaction; Pain is decreased ca1 17:45 Drug: GI Cocktail without - (Maalox Suspension 30 ml, Lidocaine Liquid 2 % 15 ca1 ml) Route: PO; 18:00 Follow up: Response: No adverse reaction; Pain is decreased ca1 Disposition: 07/04 12:04 Co-signature as Attending Physician, Luis Kraft MD I agree with the assessment and garland plan of care. Disposition: 07/03/20 17:33 Discharged to Home. Impression: Generalized abdominal pain, Vomiting, Diarrhea, unspecified. - Condition is Stable. - Discharge Instructions: Abdominal Pain, Adult, Food Choices to Help Relieve Diarrhea, Adult, Nausea and Vomiting, Adult. - Prescriptions for Zofran ODT 4 mg Oral tablet,disintegrating - place 1 tablet by TRANSLINGUAL route every 4-6 hours; 20 tablet. Bentyl 20 mg Oral Tablet - take 1 tablet by ORAL route every 6 hours As needed; 20 tablet. - Medication Reconciliation Form, Thank You Letter, Antibiotic Education, Prescription Opioid Use form. - Follow up: Corin Flores MD; When: 2 - 3 days; Reason: Recheck today's complaints, Continuance of care, Re-evaluation by your physician. Signatures: Dispatcher [employer] Luis Landa MD MD cha Mickail, Joel, PA PA jmm Leal, Jahala, RN RN jl7 Miri Field, RN RN ca1 Corrections: (The following items were deleted from the chart) 07/03 14:44 14:42 PSHx: None; jl7 jl7 18:04 17:33 07/03/2020 17:33 Discharged to Home. Impression: Generalized abdominal pain; ca1 Vomiting; Diarrhea, unspecified. Condition is Stable. Forms are Medication Reconciliation Form, Thank You Letter, Antibiotic Education, Prescription Opioid Use. Follow up: Corin Flores; When: 2 - 3 days; Reason: Recheck today's complaints, Continuance of care, Re-evaluation by your physician. wei
--- NOTE | 2020-07-03 17:34 | ER ---
Nurse's Notes [facility] Name: Apryl Chung Age: 34 yrs Sex: Female : 1985 Arrival Date: 07/03/2020 Time: 14:27 Bed 19 Private MD: Diagnosis: Generalized abdominal pain;Vomiting;Diarrhea, unspecified Presentation: 07/03 14:37 Chief complaint: Patient states: N/V/D x 2 days, diffuse abdominal pain and reported jl7 general weakness x 1 day; states "I don't know if I got food poisoning from some fish I ate on Saturday or what?" Denies fever, cough, congestion. Coronavirus screen: Client denies travel out of the [place] in the last 14 days. diarrhea, nausea, vomiting. Client presents with at least one sign or symptom that may indicate coronavirus-19. Standard/surgical mask placed on the client. Provider contacted for isolation considerations. Ebola Screen: No symptoms or risks identified at this time. Initial Sepsis Screen: Does the patient meet any 2 criteria? No. Patient's initial sepsis screen is negative. Does the patient have a suspected source of infection? No. Patient's initial sepsis screen is negative. Risk Assessment: Do you want to hurt yourself or someone else? Patient reports no desire to harm self or others. Onset of symptoms was July 01, 2020. Care prior to arrival: None. Transition of care: patient was not received from another setting of care. 14:37 Method Of Arrival: Wheelchair [facility] 14:37 Acuity: JESSICA 3 jl7 Triage Assessment: 14:42 General: Appears in no apparent distress. uncomfortable, ill, Behavior is calm, jl7 cooperative, appropriate for age. Pain: Complains of pain in abdomen diffusely Pain currently is 6 out of 10 on a pain scale. GI: Reports diarrhea, nausea, vomiting. 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 - Social history:: Smoking status: Patient/guardian denies using tobacco, the patient reports quitting approximately 2 years ago. Screenin:02 Abuse screen: Denies threats or abuse. Denies injuries from another. Nutritional ca1 screening: No deficits noted. Tuberculosis screening: No symptoms or risk factors identified. Fall Risk IV access (20 points). Assessment: 15:02 General: Appears in no apparent distress. comfortable, Behavior is calm, cooperative, ca1 appropriate for age, Reports fatigue for 2-3 days. Pain: Complains of pain in abdomen and abdomen diffusely Pain does not radiate. Pain currently is 7 out of 10 on a pain scale. Quality of pain is described as crampy, Pain began 2-3 days ago. Is intermittent. Neuro: Level of Consciousness is awake, alert, obeys commands, Oriented to person, place, time, situation, Appropriate for age. Cardiovascular: Capillary refill < 3 seconds Patient's skin is warm and dry. Respiratory: Airway is patent Respiratory effort is even, unlabored, Respiratory pattern is regular, symmetrical, Breath sounds are clear bilaterally. GI: Abdomen is round non-distended, Bowel sounds present X 4 quads. Abd is soft and non tender X 4 quads. Reports diarrhea, nausea. : No signs and/or symptoms were reported regarding the genitourinary system. EENT: No signs and/or symptoms were reported regarding the EENT system. Derm: Skin is intact, is healthy with good turgor, Skin is pink, warm \\T\\ dry. Musculoskeletal: Circulation, motion, and sensation intact. Capillary refill < 3 seconds. 15:37 Reassessment: Patient appears in no apparent distress at this time. Patient and/or ca1 family updated on plan of care and expected duration. Pain level reassessed. Patient is alert, oriented x 3, equal unlabored respirations, skin warm/dry/pink. 16:45 Reassessment: Patient appears in no apparent distress at this time. Patient and/or ca1 family updated on plan of care and expected duration. Pain level reassessed. Patient is alert, oriented x 3, equal unlabored respirations, skin warm/dry/pink. 16:51 Pain: Complains of pain in epigastric area Pain currently is 8 out of 10 on a pain ca1 scale. Quality of pain is described as burning, Notified provider. VO Pepcid 20mg IV. 17:55 Reassessment: Patient appears in no apparent distress at this time. Patient is alert, ca1 oriented x 3, equal unlabored respirations, skin warm/dry/pink. Patient states feeling better. Vital Signs: 14:37 BP 140 / 97; Pulse 71; Resp 17; Temp 98.7; Pulse Ox 100% ; Weight 80.74 kg; Height 5 jl7 ft. 6 in. (167.64 cm); Pain 6/10; 15:30 BP 137 / 96; Pulse 62; Resp 15; Pulse Ox 100% on R/A; ca1 16:45 BP 107 / 70; Pulse 68; Resp 17 S; Pulse Ox 98% on R/A; ca1 17:55 BP 101 / 71; Pulse 58; Resp 15 S; Pulse Ox 99% on R/A; ca1 14:37 Body Mass Index 28.73 (80.74 kg, 167.64 cm) jl7 ED Course: 14:27 Patient arrived in ED. as 14:42 Triage completed. jl7 14:44 Arm band placed on right wrist. jl7 14:57 Miri Field, RN is Primary Nurse. ca1 14:57 Urine collected: clean catch specimen, clear, jose colored. jb1 14:59 Jose Gunter PA is PHCP. jmm 14:59 Luis Kraft MD is Attending Physician. jmm 15:02 Patient has correct armband on for positive identification. Placed in gown. Bed in low ca1 position. Call light in reach. Side rails up X 1. Pulse ox on. NIBP on. Warm blanket given. 15:20 Initial lab(s) drawn, by me, sent to lab. Inserted saline lock: 20 gauge in right ca1 antecubital area, using aseptic technique. Blood collected. 16:34 CT Stone Protocol In Process Unspecified. EDMS 17:33 Corin Flores MD is Referral Physician. jmm 18:04 No provider procedures requiring assistance completed. IV discontinued, intact, ca1 bleeding controlled, No redness/swelling at site. Pressure dressing applied. Administered Medications: 15:25 Drug: NS 0.9% 1000 ml Route: IV; Rate: 1 bolus; Site: right antecubital; ca1 16:52 Follow up: Response: No adverse reaction; IV Status: Completed infusion; IV Intake: ca1 1000ml 15:26 Drug: diphenhydrAMINE 12.5 mg Route: IVP; Site: right antecubital; ca1 16:52 Follow up: Response: No adverse reaction; Pain is decreased ca1 15:29 Drug: Reglan 10 mg Route: IVP; Site: right antecubital; ca1 16:52 Follow up: Response: No adverse reaction; Pain is decreased; Nausea is decreased ca1 16:52 Drug: Pepcid 20 mg Route: IVP; Site: right antecubital; ca1 18:00 Follow up: Response: No adverse reaction; Pain is decreased ca1 17:45 Drug: GI Cocktail without - (Maalox Suspension 30 ml, Lidocaine Liquid 2 % 15 ca1 ml) Route: PO; 18:00 Follow up: Response: No adverse reaction; Pain is decreased ca1 Intake: 16:52 IV: 1000ml; Total: 1000ml. ca1 Outcome: 17:33 Discharge ordered by . wei 18:04 Discharged to home ambulatory. ca1 18:04 Condition: stable 18:04 Discharge instructions given to patient, Instructed on discharge instructions, follow up and referral plans. medication usage, Demonstrated understanding of instructions, follow-up care, medications, Prescriptions given X 2. 18:04 Patient left the ED. ca1 Signatures: Dispatcher [employer] EDMS Daryn Plasencia Joel, PA PA jmm Martinez, Amelia as Leal, Jahala, RN RN [email or web address] Miri Field RN RN ca1 Corrections: (The following items were deleted from the chart) 14:44 14:42 PSHx: None; elijah nava
[2020-07-03] MEDS ORDERED: MAGNE/ALUM HYDROXD 30 ML UCUP ONE (17:59)
[2020-07-03] MEDS ORDERED: LIDOCAINE VISCOUS 2% SOLN 15 ML UDC ONE (18:00)
== END 2020-07-03 18:04 | disposition home or self-care (01) ==
LOC: ER 14:27
DX: R19.7 Diarrhea, unspecified (principal); R10.84 Generalized abdominal pain; E03.9 Hypothyroidism, unspecified; Z91.048 Other nonmedicinal substance allergy status
CPT/HCPCS: 36415; 74176; 76377; 80048; 80076; 81003; 81025; 83690; 85025; 96361; 96374; 96375; 99284; J1200; J2765; J7030